=== PATIENT | male | born 1965 | race Caucasian/White ===

== ENCOUNTER 2017-02-03 00:07 | Inpatient (IN) | payer OTHER ==
[~2017-02-03] VITALS: Ht 210.8 cm; Wt 95.8 kg
[2017-02-03] VITALS (10 sets, daily range): BP systolic 128–161; BP diastolic 65–97; PULSE 72–110; RESP 16–18; TEMP 97.3–98.9; O2SAT 93–98
[2017-02-03] MEDS ORDERED: IOHEXOL 350 MG/ML 10 ML VIAL (for RAD DIAG) IVCONTRAST ONE (00:08)
[2017-02-03] MEDS ORDERED: ALBUAER3 INH (00:32)
--- NOTE | 2017-02-03 00:54 | PD ---
HPI Chief Complaint: Respiratory Symptoms Time Seen by Provider: 00:39 Travel History International Travel<30 days: No Contact w/Intl Traveler<30days: No Traveled to known affect area: No History of Present Illness HPI 51yo M with PMH of alcohol abuse presents to the ED with c/o productive cough for a few weeks. States he coughs so much, he sometimes vomits after coughing. Has intermittent mid sternal chest pain for a month. Last episode was a few hours ago. It is nonradiating. Denies any sob, n/v, abdominal pain, focal weakness or numbness. Pt drinks daily and last drank a few hours ago. Also has not seen a physician in a few years and has no PMH. Pt is a chronic cig smoker. Denies any history of ID, PE, DVT, recent surgery or travel. PFSH Past Medical History Diminished Hearing: No Tetanus Vaccination: < 5 Years Influenza Vaccination: No Past Surgical History Surgical History: No Previous Surgery Social History Alcohol Use: Yes (2-3 drinks a day) Tobacco Use: Yes (1 PPD) Substance Use: No Allergies-Medications (Allergen,Severity, Reaction): Coded Allergies: Penicillins (Verified Allergy, Unknown, 02/03/17) Unknown reaction per patient, "happened when I was a kid" Reported Meds & Prescriptions Reported Meds & Active Scripts Active Reported Proair Hfa 8.5 GM Inh (Albuterol Sulfate) 90 Mcg/Act Aer 1 Puff INH Q4H PRN 108 mcg/actuation Review of Systems Except as stated in HPI: all other systems reviewed are Neg Physical Exam Narrative GENERAL: 51yo M in mild distress. +AOB. SKIN: Focused skin assessment warm/dry. HEAD: Atraumatic. Normocephalic. EYES: Pupils equal and round. No scleral icterus. No injection or drainage. ENT: No nasal bleeding or discharge. Mucous membranes pink and moist. NECK: Trachea midline. No JVD. CARDIOVASCULAR: Tachycardic at 110bpm. No murmur appreciated. RESPIRATORY: No accessory muscle use. Clear to auscultation. Breath sounds equal bilaterally. GASTROINTESTINAL: Abdomen soft, non-tender, nondistended. MUSCULOSKELETAL: No obvious deformities. No clubbing. No cyanosis. No edema. NEUROLOGICAL: Awake and alert. No obvious cranial nerve deficits. Motor grossly within normal limits. Normal speech. PSYCHIATRIC: Appropriate mood and affect; insight and judgment normal. Data Data Last Documented VS Vital Signs Date Time Temp Pulse Resp B/P (MAP) Pulse Ox O2 Delivery O2 Flow Rate FiO2 02/03/17 03:00 106 18 144/82 (102) 96 Room Air 02/03/17 00:32 98.5 Orders Orders Basic Metabolic Panel (Bmp) (02/03/17 00:48) B-Type Natriuretic Peptide (02/03/17 00:48) Complete Blood Count With Diff (02/03/17 00:48) Magnesium (Mg) (02/03/17 00:48) Prothrombin Time / Inr (Pt) (02/03/17 00:48) Act Partial Throm Time (Ptt) (02/03/17 00:48) Troponin I (02/03/17 00:48) Chest, Single Ap (02/03/17 00:48) Ecg Monitoring (02/03/17 00:48) Bilateral Bp Monitoring (02/03/17 00:48) Iv Access Insert/Monitor (02/03/17 00:48) Oximetry (02/03/17 00:48) Oxygen Administration (02/03/17 00:48) Aspirin (Aspirin) (02/03/17 01:00) Sodium Chloride 0.9% Flush (Ns Flush) (02/03/17 01:00) Blood Culture (02/03/17 00:48) Lactic Acid Sepsis Protocol (02/03/17 00:48) Alcohol (Ethanol) (02/03/17 00:48) Sodium Chlor 0.9% 1000 Ml Inj (Ns 1000 M (02/03/17 01:00) Ct Pulmonary Angiogram (02/03/17 ) Sodium Chlor 0.9% 1000 Ml Inj (Ns 1000 M (02/03/17 02:00) Aztreonam Inj (Azactam Inj) (02/03/17 01:53) Levofloxacin (Levaquin) (02/03/17 01:53) Guaifenesin Liq (Robitussin Liq) (02/03/17 02:00) Iohexol 350 Inj (Omnipaque 350 Inj) (02/03/17 00:08) Admit Order (Ed Use Only) (02/03/17 03:24) Labs Laboratory Tests Test 02/03/17 00:30 02/03/17 02:50 White Blood Count 13.1 TH/MM3 Red Blood Count 4.55 MIL/MM3 Hemoglobin 15.5 GM/DL Hematocrit 46.7 % Mean Corpuscular Volume 102.5 FL Mean Corpuscular Hemoglobin 34.1 PG Mean Corpuscular Hemoglobin Concent 33.2 % Red Cell Distribution Width 13.7 % Platelet Count 384 TH/MM3 Mean Platelet Volume 8.6 FL Neutrophils (%) (Auto) 57.6 % Lymphocytes (%) (Auto) 30.5 % Monocytes (%) (Auto) 8.7 % Eosinophils (%) (Auto) 2.0 % Basophils (%) (Auto) 1.2 % Neutrophils # (Auto) 7.6 TH/MM3 Lymphocytes # (Auto) 4.0 TH/MM3 Monocytes # (Auto) 1.1 TH/MM3 Eosinophils # (Auto) 0.3 TH/MM3 Basophils # (Auto) 0.2 TH/MM3 CBC Comment DIFF FINAL Differential Comment Prothrombin Time 10.8 SEC Prothromb Time International Ratio 1.0 RATIO Activated Partial Thromboplast Time 25.2 SEC Blood Urea Nitrogen 6 MG/DL Creatinine 0.89 MG/DL Random Glucose 160 MG/DL Calcium Level 8.9 MG/DL Magnesium Level 1.7 MG/DL Sodium Level 136 MEQ/L Potassium Level 3.5 MEQ/L Chloride Level 99 MEQ/L Carbon Dioxide Level 24.4 MEQ/L Anion Gap 13 MEQ/L Estimat Glomerular Filtration Rate 90 ML/MIN Lactic Acid Level 3.2 mmol/L 2.3 mmol/L Troponin I LESS THAN 0.02 NG/ML B-Type Natriuretic Peptide 52 PG/ML Ethyl Alcohol Level 186 MG/DL [facility] Medical Decision Making Medical Screen Exam Complete: Yes Emergency Medical Condition: Yes Interpretation(s) EKG: Sinus tachycardia at 110bpm. Normal axis. No ST segment elevation or depression. Differential Diagnosis Pneumonia vs. bronchitis vs. ACS vs. PE vs. malignancy Narrative Course 51yo M with alcohol abuse and chronic cig smoker here with worsening cough and intermittent sharp chest pain. Does not really have sob. Pt initially tachycardic at 110bpm and is still tachycardic in the low 100s after 2 liter of NS IVF. Labs reviewed, leukocytosis at 13.1. Lactic acid is elevated at 3.2. Pt empirically given aztreonam and levoquin because pt is allergic to penicillin and presumed source is respiratory. Troponin negative. BNP normal. Blood alcohol 186. CXR negative. CT angio negative for PE. Numerous bilateral pulmonary nodules and mediastinal adenopathy characteristic of metastatic disease. Differential includes a primary lung carcinoma. Mediastinal adenopathy results in partial obstruction of the upper superior vena cava and brachiocephalic veins. Informed pt of this. Will admit pt for sepsis as well as metastatic disease work up. Pt given aspirin for atypical chest pain which is more likely pain from the malignancy. Critical Care Narrative Aggregate critical care time was 40 minutes. Time to perform other separately billable procedures was not included in the critical care time. My time did not include minutes spent treating any other patients simultaneously or on activities that did not directly contribute to the patient's treatment. The services I provided to this patient were to treat and/or prevent clinically significant deterioration that could result in: cardiovascular collapse or . I provided critical care services requiring my management, as noted below: Chart data review, documentation time, medication orders and management, vital sign assessments/reviewing monitor data, ordering and reviewing lab tests, ordering and interpreting/reviewing x-rays and diagnostic studies, care of the patient and discussion of the patient with the admitting physicians. Sepsis Criteria SIRS Criteria (2 or more): Heart rate over 90, WBC > 69418, < 4000 or > 10% bands Sepsis Criteria (SIRS+source): Infect source susp/known Severe Sepsis (+one): Lactate >2 Diagnosis Primary Impression: Sepsis Qualified Codes: A41.9 - Sepsis, unspecified organism Additional Impression: Pulmonary nodules/lesions, multiple Admitting Information Admitting Physician Requests: it Ally Champion DO Feb 03, 2017 00:54
[2017-02-03] MEDS ORDERED: ASPIRIN 325 MG TAB PO ONE (01:00)
[2017-02-03] MEDS ORDERED: SODIUM CHLOR 0.9% 1000 ML INJ 1,000 ML IV ONE ×2 (01:00→02:00)
[2017-02-03] MEDS ORDERED: SODIUM CHLORIDE 0.9% FLUSH 10 ML FLUSH IVF PRN (01:00)
[2017-02-03 01:18] LABS: AUTOMATED NEUTROPHIL # 7.6 TH/MM3 (1.8-7.7); BASOPHIL # 0.2 TH/MM3 (0-0.2); BASOPHIL % 1.2 % (0.0-2.0); EOSINOPHIL # 0.3 TH/MM3 (0-0.4); HEMATOCRIT 46.7 % (39.0-51.0); HEMO FLAGS DIFF FINAL; LYMPH % 30.5 % (9.0-44.0); MEAN CELL VOLUME 102.5 FL (80.0-100.0); MEAN CORPUSCULAR HEMOGLOBIN 34.1 PG (27.0-34.0); MEAN CORPUSCULAR HGB CONC 33.2 % (32.0-36.0); MONO % 8.7 % (0.0-8.0); NEUT % 57.6 % (16.0-70.0); PLATELET COUNT 384 TH/MM3 (150-450); RED BLOOD COUNT 4.55 MIL/MM3 (4.50-5.90); RED CELL DISTRIBUTION WIDTH 13.7 % (11.6-17.2); WHITE BLOOD COUNT 13.1 TH/MM3 (4.0-11.0)
--- NOTE | 2017-02-03 01:25 | RADRPT ---
EXAM DATE/TIME: 02/03/2017 01:17 [facility] COMPARISON: No previous studies available for comparison. INDICATIONS : Chest pain. MEDICAL HISTORY : None. SURGICAL HISTORY : None. ENCOUNTER: Initial ACUITY: 3 days PAIN SCORE: 5/10 LOCATION: Bilateral chest FINDINGS: A single view of the chest demonstrates the lungs to be symmetrically aerated without evidence of mas s, infiltrate or effusion. The cardiomediastinal contours are unremarkable. Osseous structures are intact. CONCLUSION: 1. No active disease. Cesar Johns MD on February 03, 2017 at 1:21 Board Certified Radiologist. This report was verified electronically.
[2017-02-03 01:30] LABS: APTT (PATIENT) 25.2 SEC (24.3-30.1); PROTHROMBIN TIME - PATIENT 10.8 SEC (9.8-11.6)
[2017-02-03 01:35] LABS: ANION GAP 13 MEQ/L (5-15); BICARBONATE 24.4 MEQ/L (21.0-32.0); BLOOD UREA NITROGEN 6 MG/DL (7-18); CHLORIDE 99 MEQ/L (98-107); GLOMERULAR FILTRATION RATE 90 ML/MIN (>89); MAGNESIUM 1.7 MG/DL (1.5-2.5); POTASSIUM 3.5 MEQ/L (3.5-5.1); SODIUM (NA) 136 MEQ/L (136-145)
[2017-02-03 01:36] LABS: ALCOHOL 186 MG/DL (0-5)
[2017-02-03] MEDS ORDERED: AZTREONAM INJ 2,000 MG in SODIUM CHLORIDE 0.9% INJ 100 ML IV STA (01:53)
[2017-02-03] MEDS ORDERED: LEVOFLOXACIN 750 MG TAB PO STA (01:53)
[2017-02-03] MEDS ORDERED: guaiFENesin SOLUTION 200 MG/10 ML CUP PO PRN (02:00)
--- NOTE | 2017-02-03 02:42 | RADRPT ---
EXAM DATE/TIME: 02/03/2017 02:24 [facility] COMPARISON: No previous studies available for comparison. INDICATIONS : Chest pain. IV CONTRAST: 70 cc Omnipaque 350 (iohexol) IV RADIATION DOSE: 23.25 CTDIvol (mGy) MEDICAL HISTORY : None SURGICAL HISTORY : None. ENCOUNTER: Initial ACUITY: 1 day PAIN SCALE: 5/10 LOCATION: Bilateral chest TECHNIQUE: Volumetric scanning of the chest was performed using a pulmonary embolism protocol MIP images were re constructed. Using automated exposure control and adjustment of the mA and/or kV according to patien t size, radiation dose was kept as low as reasonably achievable to obtain optimal diagnostic quality images. DICOM format image data is available electronically for review and comparison. Follow-up recommendations for detected pulmonary nodules are based at a minimum on nodule size and pa tient risk factors according to Fleischner Society Guidelines. FINDINGS: No filling defects identified in the pulmonary arteries to suggest pulmonary embolic disease. There are numerous bilateral pulmonary nodules. Largest measures about 1.7 cm left upper lobe and 1.5 cm right lower lobe. No associated pleural effusions. There is extensive mediastinal adenopathy present with conglomerate pastora mass centrally measuring up to 7.6 x 3.8 cm. A 3.5 cm anterior mediastinal mass is also present on the right partially occluding the left brachiocephalic vein and superior vena cava as well as the right brachiocephalic vein. CONCLUSION: 1. Negative for pulmonary embolus. 2. Numerous bilateral pulmonary nodules and mediastinal adenopathy characteristic of metastatic disea se. Primary unknown but differential diagnosis includes a primary lung carcinoma. 3. Mediastinal adenopathy results in partial obstruction of the upper superior vena cava and brachioc ephalic veins. Cesar Johns MD on February 03, 2017 at 2:32 Board Certified Radiologist. This report was verified electronically.
[2017-02-03 03:10] LABS: LACTIC ACID GHOST NOT REPORTABLE
[2017-02-03] MEDS ORDERED: SODIUM CHLORIDE 0.9% FLUSH 10 ML FLUSH IV FLUSH PRN ×2 (03:45→11:45)
[2017-02-03] MEDS ORDERED: NALOXONE HCL 0.4 MG/ML AMP IV PRN (03:45)
[2017-02-03] MEDS: SODIUM CHLORIDE 0.9% FLUSH 10 ML FLUSH IV FLUSH SCH ×2 (09:00→21:44)
[2017-02-03] MEDS: LEVOFLOXACIN 750 MG PREMIX INJ 150 ML IV SCH (09:16)
[2017-02-03] MEDS ORDERED: RESP: ALBUTEROL 2.5 MG/IPRATROPIUM 0.5 MG NEB (PRN) NEB (11:30)
[2017-02-03] MEDS ORDERED: methylPREDNISolone SOD SUCC 125 MG/2 ML VIAL IV PUSH ONE (11:30)
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
[2017-02-03] MEDS ORDERED: LORazepam 2 MG TAB PO PRN (11:45)
[2017-02-03] MEDS ORDERED: FLUMAZENIL 0.5 MG/5 ML VIAL IV PUSH PRN (11:45)
[2017-02-03] MEDS ORDERED: LORazepam 1 MG TAB PO PRN (11:45)
[2017-02-03] MEDS ORDERED: LORazepam 2 MG/ML VIAL IV PUSH PRN ×4 (11:45)
[2017-02-03] MEDS: ENOXAPARIN SODIUM 40 MG/0.4 ML SYRINGE SQ SCH (12:00)
[2017-02-03] MEDS: RESP: ALBUTEROL 2.5 MG/IPRATROPIUM 0.5 MG NEB (SCH) NEB ×2 (16:10→19:37)
[2017-02-03 16:23] LABS: CREATINE KINASE 62 U/L (39-308)
--- NOTE | 2017-02-03 17:35 | EKG ---
Date Performed: 02/03/2017 Time Performed: 00:33:01 PTAGE: 51 years EKG: SINUS TACHYCARDIA ABNORMAL RHYTHM ECG NO PREVIOUS TRACING DOCTOR: Jere Anand Interpretating Date/Time 02/03/2017 17:33:42
[2017-02-03] MEDS ORDERED: SODIUM CHLORIDE 0.9% FLUSH 10 ML FLUSH IV FLUSH SCH (21:00)
[2017-02-03 21:25] LABS: CREATINE KINASE 63 U/L (39-308)
[2017-02-04] VITALS: BP 128/63; PULSE 74; RESP 18; TEMP 97.6; O2SAT 95
[2017-02-04 00:07] VITALS: PULSE 84
[2017-02-04 04:00] VITALS: BP 142/79; PULSE 77; RESP 18; TEMP 97.5; O2SAT 95
--- NOTE | 2017-02-04 05:36 | MB ---
cc: CLARKE WRIGHT MD, JOHN DATE OF CONSULTATION 02/03/2017 REASON FOR CONSULTATION Lung nodules and cough. HISTORY OF PRESENT ILLNESS This is a 51-year-old white male who has a longstanding history of smoking, was complaining of increasing chest congestion, cough, wheezing, sputum production and pains along his lower chest with shortness of breath. The patient over the past few days got more symptoms of cough and wheezing and he came to the emergency room and had a CT chest done which showed evidence of multiple lung nodules bilaterally with mediastinal adenopathy. There was also partial obstruction of the SVT with the lymph nodes. He was placed on oxygen and admitted and has been started on inhaled bronchodilators and also was placed on Solu-Medrol IV and Levaquin intravenously, at 750 mg. The patient does not have any hemoptysis. He denies fevers or chills or night sweats and denies any nausea, vomiting or aspiration. PAST HISTORY The patient's past history has included - History of bronchitis but denies history of chronic lung disease. No diabetes or hypertension. PAST SURGICAL HISTORY No surgeries in the past. HABITS The patient smoked one-pack per day for over 30 years. Drinks alcohol regularly. 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 Not exposed to asbestos. ALLERGIES PENICILLIN. FAMILY HISTORY Essentially noncontributory. MED LIST ProAir inhaler 2 puffs p.r.n. SYSTEMS REVIEW The patient has had no weight loss. No headaches or blackouts. He has some postnasal drip, cough and wheezing. He has no abdominal pains but has some lower chest pain and reflux. He has no urinary symptoms. No leg or calf muscle pains. He has no joint pains of the extremities. The other systems review is negative. PHYSICAL EXAMINATION GENERAL: This averagely built middle-aged white male is alert. Face is flushed. VITAL SIGNS: Blood pressure 145/90, pulse is 106, respirations 24, temperature 98.2. HEENT: Head normocephalic. Pupils are reactive. Nasal mucosa injected. Throat is mildly injected. He has mild cerumen. NECK: Supple. No bruits or thyroid enlargement or lymphadenopathy. CHEST: Diminished breath sounds with occasional wheeze in the upper lung carson. HEART: The heart sounds are regular. S1 and S2 with no murmur. ABDOMEN: Soft, nontender. No organomegaly. Bowel sounds are active. EXTREMITIES: No lesions or edema. Normal reflexes with no calf tenderness. NEUROLOGICALLY: He does move all of his extremities well with no focal deficits. SKIN: No lesions observed. IMPRESSION 1. Multiple lung nodules with mediastinal adenopathy. Rule out malignancy. 2. Possible right basilar pneumonia and exacerbation of COPD. 3. Nicotine dependency. PLAN 1. The patient has been advised that a CT-guided needle biopsy of the lung nodule will be scheduled. 2. Bedside pulmonary function with bronchodilators will also be scheduled. 3. We will continue with IV antibiotic therapy including Levaquin 750 mg daily and nebulized DuoNeb solution added four times a day and Solu-Medrol 40 mg IV q.8 hours. 4. The patient was advised to quit cigarette smoking and a nicotine patch can be used to help him quit. 5. Also a repeat CBC and a coag profile to be done in the a.m. Thank you for this consultation. Reji Torres MD JAUSTEN/JEWELL /6:13 PM /5:17 AM
[2017-02-04 05:56] LABS: AUTOMATED NEUTROPHIL # 8.9 TH/MM3 (1.8-7.7); BASOPHIL % 0.3 % (0.0-2.0); HEMATOCRIT 43.4 % (39.0-51.0); HEMO FLAGS DIFF FINAL; LYMPH % 8.6 % (9.0-44.0); LYMPHOCYTE # 0.9 TH/MM3 (1.0-4.8); MEAN CELL VOLUME 102.3 FL (80.0-100.0); MEAN CORPUSCULAR HEMOGLOBIN 35.2 PG (27.0-34.0); MEAN CORPUSCULAR HGB CONC 34.5 % (32.0-36.0); MONO % 2.3 % (0.0-8.0); NEUT % 88.8 % (16.0-70.0); PLATELET COUNT 285 TH/MM3 (150-450); RED BLOOD COUNT 4.24 MIL/MM3 (4.50-5.90); RED CELL DISTRIBUTION WIDTH 13.7 % (11.6-17.2); WHITE BLOOD COUNT 10.1 TH/MM3 (4.0-11.0)
[2017-02-04 06:25] LABS: BICARBONATE 29.4 MEQ/L (21.0-32.0); POTASSIUM 4.3 MEQ/L (3.5-5.1)
[2017-02-04] MEDS: RESP: ALBUTEROL 2.5 MG/IPRATROPIUM 0.5 MG NEB (SCH) NEB ×3 (07:49→17:02)
[2017-02-04 08:05] VITALS: BP 151/78; PULSE 78; RESP 18; TEMP 97.3; O2SAT 95
[2017-02-04] MEDS: SODIUM CHLORIDE 0.9% FLUSH 10 ML FLUSH IV FLUSH SCH (09:00)
[2017-02-04] MEDS: methylPREDNISolone SOD SUCC 40 MG/1 ML VIAL IV PUSH SCH ×2 (09:03→12:41)
[2017-02-04] MEDS: LEVOFLOXACIN 750 MG PREMIX INJ 150 ML IV SCH (09:04)
[2017-02-04 12:05] VITALS: BP 127/72; PULSE 89; RESP 18; TEMP 97; O2SAT 96
[2017-02-04] MEDS: ENOXAPARIN SODIUM 40 MG/0.4 ML SYRINGE SQ SCH (12:40)
--- NOTE | 2017-02-04 13:03 | HHI.PR ---
Subjective Remarks Feels Better. Lung biopsy was cancelled due to Aspirin given last am. He has some wheezing. Off O2 Objective Vital Signs Date Time Temp Pulse Resp B/P (MAP) Pulse Ox O2 Delivery O2 Flow Rate FiO2 02/04/17 12:05 97.0 89 18 127/72 (90) 96 02/04/17 08:05 97.3 78 18 151/78 (102) 95 02/04/17 04:00 97.5 77 18 142/79 (100) 95 02/04/17 00:07 84 02/04/17 00:00 97.6 74 18 128/63 (84) 95 02/03/17 20:31 89 02/03/17 20:00 98.4 83 18 143/78 (99) 93 02/03/17 15:05 98.9 81 18 140/97 (111) 96 I/O 02/03/17 02/03/17 02/03/17 02/04/17 02/04/17 02/04/17 06:59 14:59 22:59 06:59 14:59 22:59 Intake Total 2100 ml 400 ml 480 ml Balance 2100 ml 400 ml 480 ml Intake Oral 400 ml 480 ml IV Total 2100 ml # Voids 3 4 # Bowel Movements 2 Result Diagram: 02/04/17 0542 02/04/17 0542 Objective Remarks GENERAL: This averagely built middle-aged white male is alert. Face is flushed. HEENT: Head normocephalic. Pupils are reactive. Nasal mucosa clear. Throat is clear. NECK: Supple. No bruits or thyroid enlargement or lymphadenopathy. CHEST: Diminished breath sounds with occasional wheeze in the upper lung carson. HEART: The heart sounds are regular. S1 and S2 with no murmur. ABDOMEN: Soft, nontender. No organomegaly. Bowel sounds are active. EXTREMITIES: No lesions or edema. Normal reflexes with no calf tenderness. NEUROLOGICALLY: He does move all of his extremities well with no focal deficits. SKIN: No lesions observed. Assessment and Plan Assessment and Plan IMPRESSION 1. Multiple lung nodules with mediastinal adenopathy. Rule out malignancy. 2. Possible right basilar pneumonia and exacerbation of COPD. 3. Nicotine dependency. Plan : 1. Cont antibiotic and switch to PO. 2. For CT guided biopsy of lung nodule in 4 days 3. Pro air inhaler 2 puffs qid prn. 4. Will F/U as OP in 1 week. Home today Jono Torres MD Feb 04, 2017 13:03
[2017-02-04 16:00] VITALS: BP 131/73; PULSE 92; RESP 17; TEMP 99.2; O2SAT 95
[2017-02-04] MEDS ORDERED: COUG100S PO (16:32)
[2017-02-04] MEDS ORDERED: LEVO750T3 PO (16:32)
[2017-02-04] MEDS ORDERED: MEDR4PAK PO (16:33)
--- NOTE | 2017-02-04 16:35 | HHI.PR ---
Subjective Remarks feeling slightly better Seen by etcher apprentice plan for outpatient CT-guided biopsy of the lung lymph node Patient wants to be discharged today Objective Vitals Vital Signs Date Time Temp Pulse Resp B/P (MAP) Pulse Ox O2 Delivery O2 Flow Rate FiO2 02/04/17 12:05 97.0 89 18 127/72 (90) 96 02/04/17 08:05 97.3 78 18 151/78 (102) 95 02/04/17 04:00 97.5 77 18 142/79 (100) 95 02/04/17 00:07 84 02/04/17 00:00 97.6 74 18 128/63 (84) 95 02/03/17 20:31 89 02/03/17 20:00 98.4 83 18 143/78 (99) 93 I/O 02/03/17 02/03/17 02/03/17 02/04/17 02/04/17 02/04/17 06:59 14:59 22:59 06:59 14:59 22:59 Intake Total 2100 ml 400 ml 480 ml Balance 2100 ml 400 ml 480 ml Intake Oral 400 ml 480 ml IV Total 2100 ml # Voids 3 4 # Bowel Movements 2 Result Diagram: 02/04/17 0542 02/04/17 0542 Objective Remarks - - GENERAL: This is a well-nourished, well-developed patient, in no apparent distress. SKIN: No rashes, warm and dry HEAD: Atraumatic. Normocephalic. Patient looks slightly plethoric his face EYES: Pupils equal round and reactive. Extraocular motions intact. No scleral icterus. ENT: Nose without bleeding, or drainage, Airway patent. NECK: Trachea midline. Supple CARDIOVASCULAR: Regular rate and rhythm without murmurs, gallops, or rubs. RESPIRATORY: Fair air entry with positive wheezes bilaterally GASTROINTESTINAL: Abdomen soft, non-tender, nondistended. Positive bowel sounds MUSCULOSKELETAL: Extremities without clubbing, cyanosis, or edema. Pedal pulses appreciated NEUROLOGICAL: Awake and alert. Moves all extremity. Normal speech.no focal neurological deficit A/P Assessment and Plan 51 years old male smoker came with Possible sepsis with lactic acidosis, tachycardia and increased WBC with underlying source pneumonia Chest tightness mostly due to mediastinal adenopathy and postobstructive pneumonia, rule out ACS Multiple bilateral pulmonary nodules with mediastinal adenopathy highly concerning malignancy Partial SVC obstruction due to mediastinal adenopathy Hyperchromic microcytic anemia mostly due to alcoholism Alcohol abuse Tobacco abuse DVT prophylaxis with Lovenox Plan: Appreciate hematology consult, discussed with the patient, recommended CT- guided biopsy as an outpatient and he will follow up in his office CT chest personally reviewed by me as well as chest x-ray 02, Solu-Medrol 1 dose 125 mg iv 1 now and then 40 every 8 to help with the wheezing and SVC obstruction DuoNeb every 6 hours and every 2 as needed Cardiac enzyme rule out ACS first set negative troponin Patient received Azactam and Levaquin dose in ED, we will continue on Levaquin iv Monitor vitals and WBC, repeat lactic acid in a.m. Sputum culture vitamin B-12 and folic acid reviewed Counseled about tobacco and alcohol abstinence, CIWA protocol Lovenox for DVT prophylaxis Discharge patient to home Condition on discharge: Improved Healthy heart Diet as tolerated Ad Sara activity Rx written: See med rec Follow-up with primary care physician, etcher apprentice in less than one week, CT- guided biopsy to be done as an outpatient Vicky Mayen MD Feb 04, 2017 16:35
--- NOTE | 2017-02-15 11:50 | RSPPFT ---
DATE OF PROCEDURE: 02/04/17 COMMENTS: Spirometry demonstrates an FEV1 of 2.5 at 65% of predicted, FVC of 4.3 at 88%, FEF 250-75 is 68%. Post-bronchodilator study demonstrated improvements in the FEV1. Flow volume loops suggest an obstructive pattern. IMPRESSION: 1. Mild to moderate obstructive disease. 2. Significant response to use of bronchodilator indicating reversibility.
== END 2017-02-04 18:17 | disposition home or self-care (01) | DRG 871 ==
LOC: NEPE 00:07 → NEDA 03:25 → INTOOBSV 03:25 → OBSVTOIN 05:30 → HOCA 06:53
PROVIDERS: ADMIT Hospitalist; ATTEND Hospitalist
DX: A41.9 Sepsis, unspecified organism (principal); J18.9 Pneumonia, unspecified organism; E87.2 Acidosis; J44.0 Chronic obstructive pulmonary disease with (acute) lower respiratory infection; D50.9 Iron deficiency anemia, unspecified; F10.20 Alcohol dependence, uncomplicated; I87.1 Compression of vein; J44.1 Chronic obstructive pulmonary disease with (acute) exacerbation; F17.210 Nicotine dependence, cigarettes, uncomplicated; G89.3 Neoplasm related pain (acute) (chronic); Y90.6 Blood alcohol level of 120-199 mg/100 ml; R91.8 Other nonspecific abnormal finding of lung field; R59.0 Localized enlarged lymph nodes
CPT/HCPCS: 71010; 71275; 80048; 80307; 82550; 82607; 82746; 83605; 83735; 83880; 84484; 85025; 85610; 85730; 87040; 93005; 94060; 94640; 94664; 96361; 96365; J1650; J1956; J2920; J2930; J7030; Q9967

== ENCOUNTER 2017-02-23 06:40 | Day surgery (SDC) | payer OTHER ==
[~2017-02-23] VITALS: Ht 180.3 cm; Wt 95.9 kg
[2017-02-23] VITALS (10 sets, daily range): BP systolic 127–168; BP diastolic 73–102; PULSE 75–96; RESP 18–20; TEMP 98–98.8; O2SAT 92–97
[~2017-02-23 06:40] MED LIST: ALBUAER3 INH; COUG100S PO; LEVO750T3 PO; MEDR4PAK PO
[2017-02-23] MEDS ORDERED: SODIUM CHLOR 0.9% 1000 ML INJ 1,000 ML IV SCH (07:30)
[2017-02-23] MEDS ORDERED: MIDAZOLAM HCL 5 MG/5 ML VIAL ONE (07:35)
[2017-02-23] MEDS ORDERED: LIDOCAINE HCL 1% 20 ML VIAL ONE (07:52)
[2017-02-23] MEDS ORDERED: MIDAZOLAM HCL 2 MG/2 ML VIAL ONE (08:22)
[2017-02-23] MEDS ORDERED: oxyCODONE/ACETAMINOPHEN 5 MG/325 MG TAB PO PRN (08:45)
--- NOTE | 2017-02-23 08:46 | PD.RAD ---
Post CT Procedure Prog Note Pre Procedure Diagnosis: (1) Lung nodule < 6cm on CT Post Procedure Diagnosis: (1) Lung nodule < 6cm on CT Procedure Date: Feb 23, 2017 Supervising Radiologist: Reji Wilkerson Estimated blood loss: minimal Anesthesia: Conscious Sedation Plan of Activity Patient to Unit: ROPU Patient Condition: Good See PACS Report for procedural detail/treatment Biopsy Imaging Guidance: CT Side: Right Biopsy Procedure: Lung Site: right lower lobe lung nodule. Specimen: Core Biopsy Plan to ROP[facility] then discharge if no complications. Reji Wilkerson MD Feb 23, 2017 08:46
--- NOTE | 2017-02-23 09:21 | RADRPT ---
EXAM DATE/TIME: 02/23/2017 08:13 [facility] COMPARISON: CT PULMONARY ANGIOGRAM, February 03, 2017, 2:24. INDICATIONS : Right lung mass. SEDATION TIME: 30 minutes BIOPSY SITE: Right MEDICATION(S): 1.) 6 mg midazolam (Versed) IV 2.) 225 mcg fentanyl (Sublimaze) IV DEVICE(S): 1.) 20 gauge Temno core biopsy needle MEDICAL HISTORY : None. SURGICAL HISTORY : None. ENCOUNTER: Initial ACUITY: 1 day PAIN SCORE: 0/10 LOCATION: Right chest A total of six core specimen(s) were obtained and sent to the laboratory for pathologic evaluation. PROCEDURE: 1. CT guided lung biopsy. 2. Conscious sedation with continuous EKG and oximetry monitoring. 3. EKG and oximetry remained stable throughout the procedure. Prior to the procedure informed consent was obtained. Any appropriate prior imaging studies were rev iewed. Using automated exposure control and adjustment of the mA and/or kV according to patient size, radiation dose was kept as low as reasonably achievable to obtain optimal diagnostic quality images. DICOM format image data is available electronically for review and comparison. The site was prepped in a sterile fashion. Full sterile technique was used, including cap, mask, madeleine rile gloves and gown and a large sterile sheet. Hand hygiene and 2% chlorhexidine and/or betadine/al cohol prep was utilized per protocol for cutaneous antisepsis. The skin and subcutaneous tissues wer e infiltrated with local anesthetic solution. The patient has multiple bilateral pulmonary nodules. The right lower lobe nodule was targeted for bi opsy. With CT guidance the right lower lobe nodule was localized. Biopsy was performed using the pres cribed needle as above. Adequate hemostasis was obtained with compression at the puncture site. Follow-up CT scan reveals no pneumothorax. There is mild perilesional hemorrhage. Conscious sedation was performed with the prescribed dosages and duration as above in the presence of an independent trained radiology nurse to assist in the monitoring of the patient. EKG and oximetry remained stable throughout the procedure. The patient tolerated the procedure well and there were no complications. The patient was sent to Radiology Outpatient Unit in stable condition. CONCLUSION: Uncomplicated CT guided biopsy of a right lower lobe nodule. Reji Wilkerson MD on February 23, 2017 at 9:06 Board Certified Radiologist. This report was verified electronically.
--- NOTE | 2017-02-23 10:09 | RADRPT ---
EXAM DATE/TIME: 02/23/2017 09:51 [facility] COMPARISON: CHEST SINGLE AP, February 03, 2017, 1:17. INDICATIONS : Post right lung biopsy. MEDICAL HISTORY : None. SURGICAL HISTORY : None. ENCOUNTER: Initial ACUITY: 1 day PAIN SCORE: 0/10 LOCATION: Bilateral chest FINDINGS: A single frontal expiratory view of the chest was performed. The lungs are symmetrically aerated and clear. No evidence of pneumothorax. Mediastinal structures are in the midline. The cardio-mediastinal contours and bronchopulmonary markings are unremarkable for an expiratory exam . Osseous structures are intact. CONCLUSION: 1. No acute cardiopulmonary findings. Yoni Muro MD on February 23, 2017 at 10:07 Board Certified Radiologist. This report was verified electronically.
--- NOTE | 2017-02-23 11:51 | RADRPT ---
EXAM DATE/TIME: 02/23/2017 11:30 [facility] COMPARISON: CHEST EXPIRATION ONLY, February 23, 2017, 9:51. INDICATIONS : Evaluate for pneumothorax MEDICAL HISTORY : None. SURGICAL HISTORY : None. ENCOUNTER: Initial ACUITY: 1 day PAIN SCORE: 0/10 LOCATION: Bilateral chest FINDINGS: A single frontal expiratory view of the chest was performed. The lungs are symmetrically aerated and clear except for some minimal left basilar atelectasis. No evidence of pneumothorax. Mediastinal s tructures are in the midline. The cardio-mediastinal contours and bronchopulmonary markings are unremarkable for an expiratory exam . Osseous structures are intact with some degenerative spurring of the dorsal spine. CONCLUSION: 1. No pneumothorax. 2. Minimal basilar atelectatic changes on the left Eric Hathaway MD on February 23, 2017 at 11:48 Board Certified Radiologist. This report was verified electronically.
== END 2017-02-23 13:00 | disposition home or self-care (01) ==
LOC: HRAD 06:40 → HRIP 06:44 → HRAD 13:00
DX: C34.91 Malignant neoplasm of unspecified part of right bronchus or lung (principal)
CPT/HCPCS: 32405; 71010; 77012; 87015; 87070; 87102; 87116; 87176; 87205; 87206; 88305; 88341; 88342; J2250; J3010

== ENCOUNTER 2017-02-26 14:41 | Inpatient (IN) | payer OTHER ==
[~2017-02-26] VITALS: Ht 180.3 cm; Wt 96.0 kg
[~2017-02-26 14:41] MED LIST changes: -LEVO750T3 PO
[2017-02-26 14:44] VITALS: BP 169/93; PULSE 98; RESP 20; TEMP 97.9; O2SAT 96
--- NOTE | 2017-02-26 15:12 | PD ---
Physical Exam Date Seen by Provider: Feb 26, 2017 Time Seen by Provider: 15:10 Narrative 51-year-old male presents to emergency department status post lung biopsy on February 23. Patient has had increasing shortness of breath, chest pain, and cough since last night. Patient denies hemoptysis. Patient denies fever. Patient denies nausea or vomiting. Patient describes the pain as a 6/ 10. Vital signs reviewed. Patient awaiting bed placement. Data Data Last Documented VS Vital Signs Date Time Temp Pulse Resp B/P (MAP) Pulse Ox O2 Delivery O2 Flow Rate FiO2 02/26/17 14:44 97.9 98 20 169/93 (118) 96 MDM Medical Record Reviewed: Yes Supervised Visit with ADALID: Yes Condition: Stable Rajat Lai Feb 26, 2017 15:12
[2017-02-26] MEDS ORDERED: UMEC1AER INH (15:30)
[2017-02-26] MEDS ORDERED: PRED10 PO (15:30)
[2017-02-26] MEDS ORDERED: SODIUM CHLORIDE 0.9% FLUSH 10 ML FLUSH IVF PRN (15:45)
--- NOTE | 2017-02-26 15:48 | PD ---
HPI Chief Complaint: Respiratory Symptoms Time Seen by Provider: 15:15 Travel History International Travel<30 days: No Contact w/Intl Traveler<30days: No Traveled to known affect area: No History of Present Illness HPI Patient is 51-year-old male who presents to emergency room with c/o of sob, chest pain and cough since his lung biopsy on February 23. Patient reports that Dr. Dalton sent him for a lung biospy for diagnosis of lung nodule on his right lung on February 23. Reports that since then, been feeling dyspneic, reports that he has been feeling short of breath with difficulty taking deep breaths also been having chest pain. Reports concerns as he just had his lung biopsy and wanted to make sure everything was okay. Reports that he has no medical problems at this time, he is taking steroids, as well as an inhaler. Denies fever/chills. Reports nonproductive cough PFSH Past Medical History Diminished Hearing: No Medical other: Yes (biopy to r lung ) Respiratory: Yes Immunizations Current: No Past Surgical History Surgical History: No Previous Surgery Social History Alcohol Use: Yes (2-3 drinks a day) Tobacco Use: Yes (4-5 a day ) Substance Use: No Allergies-Medications (Allergen,Severity, Reaction): Coded Allergies: Penicillins (Verified Allergy, Unknown, 02/26/17) Unknown reaction per patient, "happened when I was a kid" Reported Meds & Prescriptions Reported Meds & Active Scripts Active Reported Anoro Ellipta Inh (Umeclidinium/Vilanterol) 62.5-25 Mcg/Act Aero 1 Puff INH DAILY Prednisone 10 Mg Tab 10 Mg PO DAILY Proair Hfa 8.5 GM Inh (Albuterol Sulfate) 90 Mcg/Act Aer 1 Puff INH Q4H PRN 108 mcg/actuation Review of Systems General / Constitutional: No: Fever Eyes: No: Visual changes HENT: No: Headaches Cardiovascular: Positive: Chest Pain or Discomfort, Tachycardia Respiratory: Positive: Cough, Shortness of Breath Gastrointestinal: No: Abdominal Pain Genitourinary: No: Dysuria Musculoskeletal: No: Pain Skin: No Rash Neurologic: No: Weakness Psychiatric: No: Depression Endocrine: No: Polydipsia Hematologic/Lymphatic: No: Easy Bruising Physical Exam Narrative GENERAL: Mild distress SKIN: Focused skin assessment warm/dry. HEAD: Atraumatic. Normocephalic. EYES: Pupils equal and round. No scleral icterus. No injection or drainage. ENT: No nasal bleeding or discharge. Mucous membranes pink and moist. NECK: Trachea midline. No JVD. CARDIOVASCULAR: Tachycardic. No murmur appreciated. RESPIRATORY: No accessory muscle use. Clear to auscultation. Breath sounds equal bilaterally. Right posterior lung insertion site: C/D/I with no signs of infection GASTROINTESTINAL: Abdomen soft, non-tender, nondistended. Hepatic and splenic margins not palpable. MUSCULOSKELETAL: No obvious deformities. No clubbing. No cyanosis. No edema. NEUROLOGICAL: Awake and alert. No obvious cranial nerve deficits. Motor grossly within normal limits. Normal speech. PSYCHIATRIC: Appropriate mood and affect; insight and judgment normal. Data Data Last Documented VS Vital Signs Date Time Temp Pulse Resp B/P (MAP) Pulse Ox O2 Delivery O2 Flow Rate FiO2 02/26/17 17:04 83 14 136/68 (90) 95 2.00 02/26/17 16:16 Nasal Cannula 02/26/17 14:44 97.9 Orders Orders Complete Blood Count With Diff (02/26/17 15:37) Comprehensive Metabolic Panel (02/26/17 15:37) B-Type Natriuretic Peptide (02/26/17 15:37) Act Partial Throm Time (Ptt) (02/26/17 15:37) Prothrombin Time / Inr (Pt) (02/26/17 15:37) Magnesium (Mg) (02/26/17 15:37) Ckmb (Isoenzyme) Profile (02/26/17 15:37) Troponin I (02/26/17 15:37) Arterial Blood Gas (Abg) (02/26/17 15:37) Urinalysis - C+S If Indicated (02/26/17 15:37) Iv Access Insert/Monitor (02/26/17 15:37) Electrocardiogram (02/26/17 15:37) Ecg Monitoring (02/26/17 15:37) Oximetry (02/26/17 15:37) Chest, Single Ap (02/26/17 15:37) Sodium Chloride 0.9% Flush (Ns Flush) (02/26/17 15:45) Midazolam Inj (Versed Inj) (02/26/17 16:15) Hydromorphone Pf Inj (Dilaudid Pf Inj) (02/26/17 16:15) Lidocaine 1% Inj (50 Ml) (Xylocaine 1% I (02/26/17 16:30) Chest, Single Ap (02/26/17 17:03) Labs Laboratory Tests Test 02/26/17 15:30 02/26/17 15:45 White Blood Count 13.4 TH/MM3 Red Blood Count 4.33 MIL/MM3 Hemoglobin 14.8 GM/DL Hematocrit 43.9 % Mean Corpuscular Volume 101.5 FL Mean Corpuscular Hemoglobin 34.2 PG Mean Corpuscular Hemoglobin Concent 33.7 % Red Cell Distribution Width 13.2 % Platelet Count 374 TH/MM3 Mean Platelet Volume 8.8 FL Neutrophils (%) (Auto) 72.9 % Lymphocytes (%) (Auto) 16.7 % Monocytes (%) (Auto) 7.8 % Eosinophils (%) (Auto) 1.7 % Basophils (%) (Auto) 0.9 % Neutrophils # (Auto) 9.8 TH/MM3 Lymphocytes # (Auto) 2.2 TH/MM3 Monocytes # (Auto) 1.0 TH/MM3 Eosinophils # (Auto) 0.2 TH/MM3 Basophils # (Auto) 0.1 TH/MM3 CBC Comment DIFF FINAL Differential Comment Prothrombin Time 10.7 SEC Prothromb Time International Ratio 1.0 RATIO Activated Partial Thromboplast Time 25.9 SEC Blood Urea Nitrogen 8 MG/DL Creatinine 0.73 MG/DL Random Glucose 91 MG/DL Total Protein 7.5 GM/DL Albumin 3.5 GM/DL Calcium Level 9.2 MG/DL Magnesium Level 2.0 MG/DL Alkaline Phosphatase 104 U/L Aspartate Amino Transf (AST/SGOT) 42 U/L Alanine Aminotransferase (ALT/SGPT) 50 U/L Total Bilirubin 1.3 MG/DL Sodium Level 136 MEQ/L Potassium Level 3.8 MEQ/L Chloride Level 100 MEQ/L Carbon Dioxide Level 26.9 MEQ/L Anion Gap 9 MEQ/L Estimat Glomerular Filtration Rate 113 ML/MIN Total Creatine Kinase 39 U/L Troponin I LESS THAN 0.02 NG/ML B-Type Natriuretic Peptide 21 PG/ML Urine Color YELLOW Urine Turbidity CLEAR Urine pH 7.0 Urine Specific [place] 1.014 Urine Protein TRACE mg/dL Urine Glucose (UA) NEG mg/dL Urine Ketones NEG mg/dL Urine Occult Blood NEG Urine Nitrite NEG Urine Bilirubin NEG Urine Urobilinogen LESS THAN 2.0 MG/DL Urine Leukocyte Esterase NEG Urine WBC LESS THAN 1 /hpf Urine Squamous Epithelial Cells <1 /hpf Microscopic Urinalysis Comment CULT NOT INDICATED MDM Medical Decision Making Medical Screen Exam Complete: Yes Emergency Medical Condition: Yes Medical Record Reviewed: Yes Interpretation(s) EKG at 1611: NSR at 95bpm, qt/qtc: 343/395, no acute st or t wave changes, non acute ekg Vital Signs Date Time Temp Pulse Resp B/P (MAP) Pulse Ox O2 Delivery O2 Flow Rate FiO2 02/26/17 15:20 96 Nasal Cannula 2.00 02/26/17 15:19 92 17 95 Nasal Cannula 2.00 02/26/17 15:12 92 Room Air 02/26/17 14:44 97.9 98 20 169/93 (118) 96 Differential Diagnosis Differential includes pneumothorax, PE, pneumonia, ACS, arrhythmia, electrolyte abnormality Narrative Course Patient is a 51-year-old male who presents to the ER with c/o of shortness of breath/chest pain and cough after he had a lung biopsy on February 23. Patient was placed on a cardiac exercise physiologist. EKG ordered. Lab work as well as xray of chest ordered. Plan to monitor patient. Vital Signs Date Time Temp Pulse Resp B/P (MAP) Pulse Ox O2 Delivery O2 Flow Rate FiO2 02/26/17 17:04 83 14 136/68 (90) 95 2.00 02/26/17 16:16 96 Nasal Cannula 2.00 02/26/17 15:41 (118) Nasal Cannula 2.00 02/26/17 15:20 96 Nasal Cannula 2.00 02/26/17 15:19 92 17 95 Nasal Cannula 2.00 02/26/17 15:12 92 Room Air 02/26/17 14:44 97.9 98 20 169/93 (118) 96 Laboratory Tests Test 02/26/17 15:30 02/26/17 15:45 White Blood Count 13.4 TH/MM3 (4.0-11.0) Red Blood Count 4.33 MIL/MM3 (4.50-5.90) Hemoglobin 14.8 GM/DL (13.0-17.0) Hematocrit 43.9 % (39.0-51.0) Mean Corpuscular Volume 101.5 FL (80.0-100.0) Mean Corpuscular Hemoglobin 34.2 PG (27.0-34.0) Mean Corpuscular Hemoglobin Concent 33.7 % (32.0-36.0) Red Cell Distribution Width 13.2 % (11.6-17.2) Platelet Count 374 TH/MM3 (150-450) Mean Platelet Volume 8.8 FL (7.0-11.0) Neutrophils (%) (Auto) 72.9 % (16.0-70.0) Lymphocytes (%) (Auto) 16.7 % (9.0-44.0) Monocytes (%) (Auto) 7.8 % (0.0-8.0) Eosinophils (%) (Auto) 1.7 % (0.0-4.0) Basophils (%) (Auto) 0.9 % (0.0-2.0) Neutrophils # (Auto) 9.8 TH/MM3 (1.8-7.7) Lymphocytes # (Auto) 2.2 TH/MM3 (1.0-4.8) Monocytes # (Auto) 1.0 TH/MM3 (0-0.9) Eosinophils # (Auto) 0.2 TH/MM3 (0-0.4) Basophils # (Auto) 0.1 TH/MM3 (0-0.2) CBC Comment DIFF FINAL Differential Comment Prothrombin Time 10.7 SEC (9.8-11.6) Prothromb Time International Ratio 1.0 RATIO Activated Partial Thromboplast Time 25.9 SEC (24.3-30.1) Blood Urea Nitrogen 8 MG/DL (7-18) Creatinine 0.73 MG/DL (0.60-1.30) Random Glucose 91 MG/DL (74-106) Total Protein 7.5 GM/DL (6.4-8.2) Albumin 3.5 GM/DL (3.4-5.0) Calcium Level 9.2 MG/DL (8.5-10.1) Magnesium Level 2.0 MG/DL (1.5-2.5) Alkaline Phosphatase 104 U/L (45-117) Aspartate Amino Transf (AST/SGOT) 42 U/L (15-37) Alanine Aminotransferase (ALT/SGPT) 50 U/L (12-78) Total Bilirubin 1.3 MG/DL (0.2-1.0) Sodium Level 136 MEQ/L (136-145) Potassium Level 3.8 MEQ/L (3.5-5.1) Chloride Level 100 MEQ/L (98-107) Carbon Dioxide Level 26.9 MEQ/L (21.0-32.0) Anion Gap 9 MEQ/L (5-15) Estimat Glomerular Filtration Rate 113 ML/MIN (>89) Total Creatine Kinase 39 U/L (39-308) Troponin I LESS THAN 0.02 NG/ML B-Type Natriuretic Peptide 21 PG/ML (0-100) Urine Color YELLOW (YELLW/STRAW) Urine Turbidity CLEAR (CLEAR) Urine pH 7.0 (5.0-8.5) Urine Specific [place] 1.014 (1.002-1.035) Urine Protein TRACE mg/dL (NEG-TRACE) Urine Glucose (UA) NEG mg/dL (NEG) Urine Ketones NEG mg/dL (NEG) Urine Occult Blood NEG (NEG) Urine Nitrite NEG (NEG) Urine Bilirubin NEG (NEG) Urine Urobilinogen LESS THAN 2.0 MG/DL (LESS Urine Leukocyte Esterase NEG (NEG) Urine WBC LESS THAN 1 /hpf (0-5) Urine Squamous Epithelial Cells <1 /hpf (0-5) Microscopic Urinalysis Comment CULT NOT INDICATED Last Impressions Chest X-Ray 02/26/17 1537 Signed Impressions: Service Date/Time: Tuesday, February 26, 2017 15:41 - CONCLUSION: 1. Moderate to large right pneumothorax without current evidence of tension. 2. 1.8 cm pulmonary nodule in the left upper lobe. The patient has known pulmonary nodules. These findings were called to Dr. Stern in the emergency room at 1603 hrs. Moy Maier MD Patient gave verbal and written consent for chest tube placed Chest tube placed without difficultly Case reviewed with Dr. Batista who accepts pt to his service Procedures Procedure Narrative CHEST TUBE THORACOSTOMY: The right chest was prepped with Betadine and sterilely draped. The area of the fifth intercostal interspace was infiltrated with 1% lidocaine plain. A 1 centimeter incision was made with a scalpel at the fifth intercostal space. Blunt dissection to the fourth intercostal interspace performed and the pleura was punctured with immediate grijalva of air. Finger was inserted in the space and thoracostomy tube was placed, directed posteriorly and superiorly. Tube draining well. The thoracostomy tube 28Fr was secured with suture. Sterile seal dressing placed. Patient tolerated procedure well. Diagnosis Primary Impression: Pneumothorax after biopsy Admitting Information Admitting Physician Requests: Admit Condition: Stable Bere Stern DO Feb 26, 2017 15:48
--- NOTE | 2017-02-26 16:07 | RADRPT ---
EXAM DATE/TIME: 02/26/2017 15:41 [facility] COMPARISON: CT PULMONARY ANGIOGRAM, February 03, 2017, 2:24. CHEST EXPIRATION ONLY, February 23, 2017, 9:51. [facility]VIS ST SINGLE AP, February 03, 2017, 1:17. INDICATIONS : Shortness of breath and cough status post right lung biopsy on 02/23/17. MEDICAL HISTORY : None. SURGICAL HISTORY : Right lung biopsy. ENCOUNTER: Initial ACUITY: 1 day PAIN SCORE: 0/10 LOCATION: chest FINDINGS: A single AP semierect portable view of the chest was obtained and demonstrates a moderate to large ri ght pneumothorax which extends from the lung apex to the base and surrounds the periphery of the lung which is collapsed centrally. There is no definite mediastinal shift or mass effect at this time. Th ere is a pulmonary nodule projected over the left upper lobe measuring approximately 1.8 cm. The hear t size is within normal limits. The bony thorax is intact. CONCLUSION: 1. Moderate to large right pneumothorax without current evidence of tension. 2. 1.8 cm pulmonary nodule in the left upper lobe. The patient has known pulmonary nodules. These findings were called to Dr. Stern in the emergency room at 1603 hrs. Moy Maier MD on February 26, 2017 at 16:01 Board Certified Radiologist. This report was verified electronically.
[2017-02-26] MEDS ORDERED: MIDAZOLAM HCL 2 MG/2 ML VIAL IV PUSH ONE (16:15)
[2017-02-26] MEDS ORDERED: HYDROmorphone HCL PF 1 MG/ML VIAL IV PUSH ONE (16:15)
[2017-02-26 16:16] VITALS: O2SAT 96
[2017-02-26] MEDS ORDERED: LIDOCAINE HCL 1% 50 ML VIAL INFIL ONE (16:30)
[2017-02-26 16:31] LABS: AUTOMATED NEUTROPHIL # 9.8 TH/MM3 (1.8-7.7); BASOPHIL # 0.1 TH/MM3 (0-0.2); BASOPHIL % 0.9 % (0.0-2.0); EOSINOPHIL # 0.2 TH/MM3 (0-0.4); EOSINOPHIL % 1.7 % (0.0-4.0); HEMATOCRIT 43.9 % (39.0-51.0); HEMO FLAGS DIFF FINAL; LYMPH % 16.7 % (9.0-44.0); LYMPHOCYTE # 2.2 TH/MM3 (1.0-4.8); MEAN CELL VOLUME 101.5 FL (80.0-100.0); MEAN CORPUSCULAR HEMOGLOBIN 34.2 PG (27.0-34.0); MEAN CORPUSCULAR HGB CONC 33.7 % (32.0-36.0); MONO % 7.8 % (0.0-8.0); NEUT % 72.9 % (16.0-70.0); PLATELET COUNT 374 TH/MM3 (150-450); RED BLOOD COUNT 4.33 MIL/MM3 (4.50-5.90); RED CELL DISTRIBUTION WIDTH 13.2 % (11.6-17.2); WHITE BLOOD COUNT 13.4 TH/MM3 (4.0-11.0)
[2017-02-26 16:34] LABS: BLOOD, URINE NEG (NEG); GLUCOSE,URINE NEG (NEG); KETONE, URINE NEG (NEG); NITRITE,URINE NEG (NEG); SQUAMOUS EPITHELIAL CELL URINE <1 /hpf (0-5); URINE COLOR YELLOW (YELLW/STRAW)
[2017-02-26 16:39] LABS: COMMENT (UR) CULT NOT INDICATED; CULTURE IF INDICATED CULT NOT INDICATED
[2017-02-26 16:40] LABS: APTT (PATIENT) 25.9 SEC (24.3-30.1); PROTHROMBIN TIME - PATIENT 10.7 SEC (9.8-11.6)
[2017-02-26 16:53] LABS: ANION GAP 9 MEQ/L (5-15); AST (GOT) 42 U/L (15-37); BICARBONATE 26.9 MEQ/L (21.0-32.0); BLOOD UREA NITROGEN 8 MG/DL (7-18); CHLORIDE 100 MEQ/L (98-107); GLOMERULAR FILTRATION RATE 113 ML/MIN (>89); POTASSIUM 3.8 MEQ/L (3.5-5.1); SODIUM (NA) 136 MEQ/L (136-145)
[2017-02-26 16:58] LABS: ALKALINE PHOSPHATASE 104 U/L (45-117); ALT (GPT) 50 U/L (12-78); TOTAL BILIRUBIN ADULT 1.3 MG/DL (0.2-1.0)
[2017-02-26 17:04] VITALS: BP 136/68; PULSE 83; RESP 14; O2SAT 95
[2017-02-26 17:07] LABS: CREATINE KINASE 39 U/L (39-308)
--- NOTE | 2017-02-26 17:31 | RADRPT ---
EXAM DATE/TIME: 02/26/2017 17:06 [facility] COMPARISON: CHEST SINGLE AP, February 26, 2017, 15:41. INDICATIONS : Chest tube placement. MEDICAL HISTORY : None. SURGICAL HISTORY : None. ENCOUNTER: Initial ACUITY: 1 day PAIN SCORE: 3/10 LOCATION: Right chest FINDINGS: A single AP portable semierect view of the chest was obtained and demonstrates interval placement of a right-sided chest tube with the tip projected along the lateral right lung apex. The moderate to la rge pneumothorax has improved with no definite residual. There is streaky opacity at the right lung b ase. A left pulmonary nodule is not well visualized. The heart size is within normal limits there is no mediastinal shift or effusion. CONCLUSION: 1. Interval placement of right-sided chest tube with no residual right pneumothorax. 2. Patchy opacity right lung base most consistent with atelectasis. 3. The previously noted left pulmonary nodule is not well-visualized. Moy Maier MD on February 26, 2017 at 17:28 Board Certified Radiologist. This report was verified electronically.
--- NOTE | 2017-02-26 17:36 | HHI.HP ---
HPI Service [facility] Primary Care Physician Unknown Admission Diagnosis Diagnoses: Chief Complaint: Chest pain Travel History International Travel<30 Days: No Contact w/Intl Traveler <30 Da: No Traveled to Known Affected Are: No History of Present Illness Written by Luis Adhikari, acting as scribe for Dr. Batista on 02/26/17 at 17:36. 51-year-old male with past medical history of lung nodules who presented for right-sided chest and back pain. The patient had a lung biopsy on Tuesday of this week secondary to recent lung nodules that were found. He states that since that time he's been having chest pain and upper back pain, worse on the right side. He's been having a nonproductive cough, denies any hemoptysis. He' s been having progressively worsening shortness of breath. He was found to have a right pneumothorax in the ED and a chest tube was placed. Currently he complains of discomfort from the chest tube. His internal audit consultant is Dr. Torres. He denies any nausea, vomiting, diarrhea, constipation, fever, chills, vision changes, numbness, tingling. Review of Systems Except as stated in HPI: all other systems reviewed are Neg Past Family Social History Past Medical History Pulmonary nodules Past Surgical History Lung biopsy Reported Medications Reported Meds & Active Scripts Active Reported Anoro Ellipta Inh (Umeclidinium/Vilanterol) 62.5-25 Mcg/Act Aero 1 Puff INH DAILY Prednisone 10 Mg Tab 10 Mg PO DAILY Proair Hfa 8.5 GM Inh (Albuterol Sulfate) 90 Mcg/Act Aer 1 Puff INH Q4H PRN 108 mcg/actuation Allergies: Coded Allergies: Penicillins (Verified Allergy, Unknown, 02/26/17) Unknown reaction per patient, "happened when I was a kid" Active Ordered Medications Current Medications Medications (Trade) Dose Ordered Sig/Nate Route Start Time Stop Time Status Last Admin (NS Flush) 2 ml UNSCH PRN IVF 02/26/17 15:45 Family History Adopted, unknown family history Social History Has a couple drinks nightly, denies any problems with withdrawals Has smoked 1 pack per day for 30 years, trying to cut back Denies any drug use Physical Exam Vital Signs Vital Signs Date Time Temp Pulse Resp B/P (MAP) Pulse Ox O2 Delivery O2 Flow Rate FiO2 02/26/17 17:04 83 14 136/68 (90) 95 2.00 02/26/17 16:16 96 Nasal Cannula 2.00 02/26/17 15:41 (118) Nasal Cannula 2.00 02/26/17 15:20 96 Nasal Cannula 2.00 02/26/17 15:19 92 17 95 Nasal Cannula 2.00 02/26/17 15:12 92 Room Air 02/26/17 14:44 97.9 98 20 169/93 (118) 96 Physical Exam GENERAL: Well-developed well-nourished. In no acute distress. SKIN: Warm and dry. Chest tube in place with occlusive dressing in the right axilla. HEENT: Normocephalic. Pupils equal and round. Mucous membranes pink and moist. CARDIOVASCULAR: Regular rate and rhythm. No murmur appreciated. RESPIRATORY: No accessory muscle use. Clear to auscultation. Breath sounds equal bilaterally. GASTROINTESTINAL: Abdomen soft, non-tender, nondistended. Bowel sounds x4. MUSCULOSKELETAL: No obvious deformities. Digital clubbing noted. No edema. NEUROLOGICAL: Awake and alert. No focal neurological deficits. Moves upper and lower extremities spontaneously. Normal speech. PSYCHIATRIC: Appropriate mood and affect; insight and judgment normal. Laboratory Laboratory Tests Test 02/26/17 15:30 02/26/17 15:45 White Blood Count 13.4 Red Blood Count 4.33 Hemoglobin 14.8 Hematocrit 43.9 Mean Corpuscular Volume 101.5 Mean Corpuscular Hemoglobin 34.2 Mean Corpuscular Hemoglobin Concent 33.7 Red Cell Distribution Width 13.2 Platelet Count 374 Mean Platelet Volume 8.8 Neutrophils (%) (Auto) 72.9 Lymphocytes (%) (Auto) 16.7 Monocytes (%) (Auto) 7.8 Eosinophils (%) (Auto) 1.7 Basophils (%) (Auto) 0.9 Neutrophils # (Auto) 9.8 Lymphocytes # (Auto) 2.2 Monocytes # (Auto) 1.0 Eosinophils # (Auto) 0.2 Basophils # (Auto) 0.1 CBC Comment DIFF FINAL Differential Comment Prothrombin Time 10.7 Prothromb Time International Ratio 1.0 Activated Partial Thromboplast Time 25.9 Blood Urea Nitrogen 8 Creatinine 0.73 Random Glucose 91 Total Protein 7.5 Albumin 3.5 Calcium Level 9.2 Magnesium Level 2.0 Alkaline Phosphatase 104 Aspartate Amino Transf (AST/SGOT) 42 Alanine Aminotransferase (ALT/SGPT) 50 Total Bilirubin 1.3 Sodium Level 136 Potassium Level 3.8 Chloride Level 100 Carbon Dioxide Level 26.9 Anion Gap 9 Estimat Glomerular Filtration Rate 113 Total Creatine Kinase 39 Troponin I LESS THAN 0.02 B-Type Natriuretic Peptide 21 Urine Color YELLOW Urine Turbidity CLEAR Urine pH 7.0 Urine Specific [place] 1.014 Urine Protein TRACE Urine Glucose (UA) NEG Urine Ketones NEG Urine Occult Blood NEG Urine Nitrite NEG Urine Bilirubin NEG Urine Urobilinogen LESS THAN 2.0 Urine Leukocyte Esterase NEG Urine WBC LESS THAN 1 Urine Squamous Epithelial Cells <1 Microscopic Urinalysis Comment CULT NOT INDICATED Result Diagram: 02/26/17 1530 02/26/17 1530 Imaging Last Impressions Chest X-Ray 02/26/17 1703 Signed Impressions: Service Date/Time: Tuesday, February 26, 2017 17:06 - CONCLUSION: 1. Interval placement of right-sided chest tube with no residual right pneumothorax. 2. Patchy opacity right lung base most consistent with atelectasis. 3. The previously noted left pulmonary nodule is not well-visualized. MD Leroy Lojai VTE Risk Assessment Caprini VTE Risk Assessment: Mod/High Risk (score >= 2) Caprini Risk Assessment Model Point Value = 1 Point Value = 2 Point Value = 3 Point Value = 5 Age 41-60 Minor surgery BMI > 25 kg/m2 Swollen legs Varicose veins or History of unexplained or recurrent spontaneous Oral contraceptives or hormone replacement Sepsis (< 1 month) Serious lung disease, including pneumonia (< 1 month) Abnormal pulmonary function Acute myocardial infarction Congestive heart failure (< 1 month) History of inflammatory bowel disease Medical patient at bed rest Age 61-74 Arthroscopic surgery Major open surgery (> 45 min) Laparoscopic surgery (> 45 min) Malignancy Confined to bed (> 72 hours) Immobilizing plaster cast Central venous access Age >= 75 History of VTE Family history of VTE Factor V Leiden Prothrombin [id number] Lupus anticoagulant Anticardiolipin antibodies Elevated serum homocysteine Heparin-induced thrombocytopenia Other congenital or acquired thrombophilia Stroke (< 1 month) Elective arthroplasty Hip, pelvis, or leg fracture Acute spinal cord injury (< 1 month) Prophylaxis Regimen Total Risk Factor Score Risk Level Prophylaxis Regimen 0-1 Low Early ambulation 2 Moderate Order ONE of the following: *Sequential Compression Device (SCD) *Heparin 5000 units SQ BID 3-4 Higher Order ONE of the following medications: *Heparin 5000 units SQ TID *Enoxaparin/Lovenox 40 mg SQ daily (WT < 150 kg, CrCl > 30 mL/min) *Enoxaparin/Lovenox 30 mg SQ daily (WT < 150 kg, CrCl > 10-29 mL/min) *Enoxaparin/Lovenox 30 mg SQ BID (WT < 150 kg, CrCl > 30 mL/min) AND/OR *Sequential Compression Device (SCD) 5 or more Highest Order ONE of the following medications: *Heparin 5000 units SQ TID (Preferred with Epidurals) *Enoxaparin/Lovenox 40 mg SQ daily (WT < 150 kg, CrCl > 30 mL/min) *Enoxaparin/Lovenox 30 mg SQ daily (WT < 150 kg, CrCl > 10-29 mL/min) *Enoxaparin/Lovenox 30 mg SQ BID (WT < 150 kg, CrCl > 30 mL/min) AND *Sequential Compression Device (SCD) Assessment and Plan Assessment and Plan 51-year-old male with past medical history of lung nodules who presented for right-sided chest and back pain Right-sided pneumothorax with pleuritic chest and back pain: Status post chest tube placement in the ED. Reviewed: Pre and post chest tube chest x-rays. Lung biopsy pathology. -Consult pulmonology, appreciate assistance with chest tube management -Nebs. Incentive spirometry. -Pain control with Pangburn and IV morphine Adenocarcinoma of the lung: New diagnosis. Seen on recent lung pathology. -Consult oncology, appreciate recommendations COPD: -Continue home pulmonary regimen -Pulmonology on board -Encouraged tobacco cessation DVT prophylaxis: SCDs Discussed Condition With Patient, ED staff Attending Statement This note was transcribed by raymond Adhikari. I, Dr. Javier Batista personally performed the history, physical exam, and medical decision making; and confirmed the accuracy of the information in the transcribed note. Authenticated by Dr. Javier Batista on 02/26/17 at 18:47. Luis Adhikari Feb 26, 2017 17:36 Javier Batista MD Feb 26, 2017 18:47
[2017-02-26 17:39] VITALS: BP 164/85; PULSE 92; RESP 19; O2SAT 95
[2017-02-26] MEDS ORDERED: SODIUM CHLORIDE 0.9% FLUSH 10 ML FLUSH IV FLUSH PRN (17:45)
[2017-02-26] MEDS ORDERED: BISACODYL 10 MG SUPP RECTAL PRN (17:45)
[2017-02-26] MEDS ORDERED: NALOXONE HCL 0.4 MG/ML AMP IV PUSH PRN (17:45)
[2017-02-26] MEDS ORDERED: SENNOSIDES 8.6 MG TAB PO PRN (17:45)
[2017-02-26] MEDS ORDERED: LACTULOSE SYRUP 20 GM/30 ML CUP PO PRN (17:45)
[2017-02-26] MEDS ORDERED: MAGNESIUM HYDROXIDE SUSP 30 ML CUP PO PRN (17:45)
[2017-02-26] MEDS ORDERED: RESP: ALBUTEROL 2.5 MG/3 ML NEB (PRN) NEB (17:45)
[2017-02-26] MEDS ORDERED: ACETAMINOPHEN/HYDROcodone 325 MG/5 MG TAB PO PRN (17:45)
[2017-02-26] MEDS ORDERED: ACETAMINOPHEN 325 MG TAB PO PRN ×2 (17:45)
[2017-02-26] MEDS ORDERED: ONDANSETRON HCL 4 MG/2 ML VIAL IVP PRN (17:45)
[2017-02-26] MEDS: MORPHINE SULFATE 4 MG/ML INJ IV PUSH PRN ×2 (19:59→23:50)
[2017-02-26] MEDS: SODIUM CHLORIDE 0.9% FLUSH 10 ML FLUSH IV FLUSH SCH (20:02)
[2017-02-26 20:15] VITALS: BP 156/82; PULSE 89; RESP 21; TEMP 96.9; O2SAT 92
[2017-02-26] MEDS: ACETAMINOPHEN/HYDROcodone 325 MG/10 MG TAB PO PRN (20:51)
[2017-02-27] VITALS (7 sets, daily range): BP systolic 126–141; BP diastolic 63–76; PULSE 78–99; RESP 16–20; TEMP 96.5–98.7; O2SAT 91–97
[2017-02-27] MEDS: ACETAMINOPHEN/HYDROcodone 325 MG/10 MG TAB PO PRN ×5 (02:54→23:24)
[2017-02-27] MEDS: MORPHINE SULFATE 4 MG/ML INJ IV PUSH PRN ×3 (05:34→19:52)
[2017-02-27 07:40] LABS: AUTOMATED NEUTROPHIL # 9.1 TH/MM3 (1.8-7.7); BASOPHIL # 0.1 TH/MM3 (0-0.2); BASOPHIL % 0.8 % (0.0-2.0); EOSINOPHIL # 0.3 TH/MM3 (0-0.4); EOSINOPHIL % 2.6 % (0.0-4.0); HEMATOCRIT 40.4 % (39.0-51.0); HEMO FLAGS DIFF FINAL; MEAN CELL VOLUME 101.7 FL (80.0-100.0); MEAN CORPUSCULAR HEMOGLOBIN 35.4 PG (27.0-34.0); MEAN CORPUSCULAR HGB CONC 34.8 % (32.0-36.0); MONO % 8.1 % (0.0-8.0); NEUT % 72.5 % (16.0-70.0); PLATELET COUNT 284 TH/MM3 (150-450); RED BLOOD COUNT 3.98 MIL/MM3 (4.50-5.90); WHITE BLOOD COUNT 12.5 TH/MM3 (4.0-11.0)
[2017-02-27] MEDS: RESP: ALBUTEROL 2.5 MG/IPRATROPIUM 0.5 MG NEB (SCH) NEB ×4 (08:25→19:22)
[2017-02-27] MEDS: predniSONE 10 MG TAB PO SCH (09:45)
[2017-02-27] MEDS: SODIUM CHLORIDE 0.9% FLUSH 10 ML FLUSH IV FLUSH SCH ×2 (09:45→19:53)
--- NOTE | 2017-02-27 13:07 | EKG ---
Date Performed: 02/26/2017 Time Performed: 16:11:34 PTAGE: 51 years EKG: Sinus rhythm NORMAL ECG PREVIOUS TRACING : 02/03/2017 00.33 Since previous tracing, no significant change. DOCTOR: Ramin Rodriguez Interpretating Date/Time 02/27/2017 13:06:20
--- NOTE | 2017-02-27 13:20 | MB ---
cc: LUIS ADHIKARI PA DEVERAS, RUBY ANNE E. M.D. DATE OF CONSULTATION: 02/27/2017 DATE OF [address] Luis Adhikari CHIEF COMPLAINT Dr. Adhikari requests consultation for Mr. Lorenzo with newly diagnosed lung cancer. HISTORY OF PRESENT ILLNESS Mr. Lorenzo is a 51-year-old man with chronic tobacco use. He had worsening chest tightness, sputum production and changes in his voice. He was seen in the emergency room on 02/03/[address] angiogram was performed that showed no pulmonary emboli. However, there were numerous bilateral pulmonary nodule and mediastinal adenopathy characteristic of metastatic disease. A bronchogenic carcinoma is considered. There is partial obstruction of superior vena cava and brachiocephalic veins. He came in and had a CT-guided lung biopsy coordinated on 02/23/2017. His course was complicated by pneumothorax. He came into the emergency room on 02/26/2017 with increasing shortness of breath, chest pain and cough. Chest x-ray showed moderate to large right pneumothorax on February 26, 2017 and a chest tube was placed. Hematology oncology consulted for the lung biopsy that came back as a moderately differentiated adenocarcinoma consistent with lung primary. The patient denies any fevers, chills or night sweats. He is most uncomfortable with the chest tube especially when he moves. He is comfortable with the amount of pain medication that is being administered. He has no family history in order to determine any hereditary component. He denies any numbness or tingling. He is noted to have a macrocytosis and a low normal B12 level. He denies any GI complaints. His alcohol level was elevated when he first came in. He smokes actively. The rest of his review of systems is negative. PAST MEDICAL HISTORY Pulmonary nodule, chest pain, voice changes. PAST SURGICAL HISTORY CT guided lung biopsy and pneumothorax. ALLERGIES PENICILLIN. MEDICATION Medications from home: None. FAMILY HISTORY Adopted, no family history from biologic parents. SOCIAL HISTORY He drinks a couple of drinks nightly. He smokes a pack a day for over 30 years. He denies any illicit drug use. 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 CURRENT MEDICATIONS 1. Prednisone. 2. DuoNeb. 3. [place] p.r.n. 4. ___ 5. Senokot p.r.n. PHYSICAL EXAMINATION VITAL SIGNS: Temperature 98.1, heart rate 78, respiratory rate 17, blood pressure 140/76, saturation 97%. GENERAL: Mr. Lorenzo is a well-developed, well-nourished man who looks his stated age. HEENT: His pupils are round, reactive to light and accommodation. Oropharynx is clear. NECK: Neck is supple. LUNGS: With good air entry on both sides. Chest tube is in the right place on the right. CARDIOVASCULAR: Exam reveals normal rate, rhythm. ABDOMEN: Abdomen is benign. EXTREMITIES: Lower extremities with no edema. He moves all four extremities. His voice is changing. LABORATORY DATA Mild macrocytosis, MCV 101, bilirubin mildly elevated at 1.3. Liver functions are normal. ASSESSMENT/PLAN Mr. Lorenzo is a 51-year-old man with long history of smoking and daily alcohol use. He is admitted for pneumothorax complicating a CT-guided lung biopsy. His diagnosis of [id number] lung cancer is confirmed. I had lengthy discussion about his clinical staging. It looks like he has metastatic disease with lung lesions on both sides. He has mediastinal involvement and possible compression of the superior vena cava. He gives no symptoms for a superior vena cava syndrome. He has no orthostasis, no dizziness, lightheadedness. He will need treatment promptly for metastatic [id number] lung cancer. He will need staging evaluation. We discussed outpatient CT PET scan which he is agreeable to. We will continue to follow while he is in the hospital. We will coordinate a CT PET scan, MRI of the brain and port placement on an outpatient basis. We will give him information on first-line chemotherapy. The treatment for metastatic [id number] lung cancer is changing. It is however still standard to use chemotherapy [place] and second line checkpoint inhibitors. His questions were answered to his satisfaction. Jennifer Vogel MD RAD/TLL /11:15 AM /12:54 PM
--- NOTE | 2017-02-27 13:28 | HHI.PR ---
Subjective Remarks Follow up pneumothorax. Patient still having some discomfort at the site of the chest tube. Denies dyspnea. Feels better overall today. Objective Vitals Vital Signs Date Time Temp Pulse Resp B/P (MAP) Pulse Ox O2 Delivery O2 Flow Rate FiO2 02/27/17 12:00 98.2 78 16 131/63 (85) 91 02/27/17 08:24 96 21 02/27/17 08:00 98.0 78 17 140/76 (97) 97 02/27/17 07:00 96 Room Air 02/27/17 00:19 98.7 99 20 126/67 (86) 95 02/26/17 21:39 Nasal Cannula 2.00 02/26/17 20:15 96.9 89 21 156/82 (106) 92 02/26/17 18:53 02/26/17 17:39 92 19 164/85 (111) 95 Nasal Cannula 2.00 02/26/17 17:04 83 14 136/68 (90) 95 2.00 02/26/17 16:16 96 Nasal Cannula 2.00 02/26/17 15:41 (118) Nasal Cannula 2.00 02/26/17 15:20 96 Nasal Cannula 2.00 02/26/17 15:19 92 17 95 Nasal Cannula 2.00 02/26/17 15:12 92 Room Air 02/26/17 14:44 97.9 98 20 169/93 (118) 96 I/O 02/26/17 02/26/17 02/26/17 02/27/17 02/27/17 02/27/17 07:00 15:00 23:00 07:00 15:00 23:00 Intake Total 0 ml 360 ml Output Total 2 ml 820 ml Balance -2 ml -460 ml Intake Oral 360 ml IV Total 0 ml Output Urine Total 800 ml Chest Tube Drainage Total 2 ml 20 ml Result Diagram: 02/27/17 0640 02/26/17 1530 Imaging Last Impressions Chest X-Ray 02/26/17 1703 Signed Impressions: Service Date/Time: Sunday, February 26, 2017 17:06 - CONCLUSION: 1. Interval placement of right-sided chest tube with no residual right pneumothorax. 2. Patchy opacity right lung base most consistent with atelectasis. 3. The previously noted left pulmonary nodule is not well-visualized. Moy Maier MD Objective Remarks General: No acute distress. Heart: Regular rate and rhythm. No murmur. Lungs: Clear to auscultation bilaterally. No wheezes, rales, or rhonchi. Breathing is nonlabored. Right-sided chest tube in place. Abdomen: Soft, nontender, nondistended. Extremities: No lower extremity edema. Psych: Alert and oriented. Procedures None Urinary Catheter: No Vascular Central Line Catheter: No A/P Problem List: (1) Adenocarcinoma, lung ICD Code: C34.90 - Malignant neoplasm of unspecified part of unspecified bronchus or lung (2) COPD (chronic obstructive pulmonary disease) ICD Code: J44.9 - Chronic obstructive pulmonary disease, unspecified (3) Pneumothorax after biopsy ICD Code: J95.811 - Postprocedural pneumothorax Status: Acute Assessment and Plan 1. Pneumothorax, right: Secondary to CT-guided lung biopsy. Status post chest tube placement in the emergency department. Appreciate pulmonology management of chest tube. Continue incentive spirometry, nebulizer treatments. Continue pain control. 2. Adenocarcinoma of the long: Newly diagnosed. Appreciate oncology recommendations. Will need further staging workup as outpatient. 3. COPD: Continue current medications. Appreciate pulmonology recommendations. 4. DVT prophylaxis: SCDs. Javier Batista MD Feb 27, 2017 13:28
[2017-02-28] VITALS (10 sets, daily range): BP systolic 127–137; BP diastolic 61–71; PULSE 85–100; RESP 17–18; TEMP 95.9–97.9; O2SAT 92–96
[2017-02-28] MEDS: MORPHINE SULFATE 4 MG/ML INJ IV PUSH PRN ×3 (01:54→21:27)
[2017-02-28] MEDS: ACETAMINOPHEN/HYDROcodone 325 MG/10 MG TAB PO PRN ×3 (05:53→20:16)
[2017-02-28] MEDS: RESP: ALBUTEROL 2.5 MG/IPRATROPIUM 0.5 MG NEB (SCH) NEB ×4 (07:29→20:00)
--- NOTE | 2017-02-28 08:10 | MB ---
cc: SHIRA TORRES R. STEVEN M.D. DATE OF CONSULTATION: 02/27/2017 HISTORY OF PRESENT ILLNESS: Mr. Lorenzo is a 51-year-old white male who recently had a right lower lobe nodule biopsied and presented back to the emergency room yesterday with shortness of breath and chest pain. Chest x-ray revealed a pneumothorax. A chest tube was inserted and follow up film reveals complete re-expansion. He has been stable overnight with a little discomfort where the chest tube is. There is no persistent air leak. O2 sats on two liters are 96%. The patient presented with multiple lung nodules and mediastinal adenopathy and the biopsy was arranged by Dr. Torres as an outpatient. He is a smoker and has been trying to cut back, but has a 30 to 40 pack-year smoking history. The pathology report from 02/23 reveals moderately differentiated adenocarcinoma. He has extensive mediastinal adenopathy and apparently the oncologist was in to see him earlier today. He has had no hemoptysis. Minimal chest pain on deep inspiration, shortness of breath is relieved after chest tube insertion. PAST SURGICAL HISTORY Negative. PAST MEDICAL HISTORY Other than biopsy of the lung and these nodules apparently negative. SOCIAL HISTORY Smoking noted, 2-3 ounces of alcohol a day. ALLERGIES Penicillin. REVIEW OF SYSTEMS Pulmonary: As noted above. No other complaints. PHYSICAL EXAMINATION: Neck: No adenopathy in the neck, supraclavicular region. No crepitance is palpable in the chest or neck. Lungs: Lungs are clear, equal bilaterally. Heart: No harsh murmur. Chest tube in place. No leak. Extremities: No peripheral edema or cyanosis. DISCUSSION Mr. Lorenzo presented with pneumothorax after his recent percutaneous biopsy. He is stable now. The tube is in place. His lung is reexpanded. Oncology has already seen him and is discussing therapy. Dr. Torres will see him back in the morning. I have ordered a follow up chest x-ray in the morning and left additional orders for the nurse. I did speak to the nurse. Apparently the tube had been clamped at some point and I told them not to clamp the tube without a direct physician order. The patient is stable. R. MD ABDON Abebe/JESSENIA /11:48 AM /8:03 AM
[2017-02-28] MEDS: predniSONE 10 MG TAB PO SCH (08:39)
[2017-02-28] MEDS: SODIUM CHLORIDE 0.9% FLUSH 10 ML FLUSH IV FLUSH SCH ×2 (08:39→20:17)
--- NOTE | 2017-02-28 09:36 | PD.ONC.PN ---
Subjective Subjective Remarks Afebrile overnight. Patient resting in room. He is anxious and hopeful to go home soon, but states he doesn't want to go home too early and then have to come back. Objective Data Date Time Temp Pulse Resp B/P (MAP) Pulse Ox O2 Delivery O2 Flow Rate FiO2 02/28/17 08:00 95.9 90 17 134/67 (89) 95 02/28/17 07:32 95 Nasal Cannula 2.00 02/28/17 04:18 97.8 88 18 127/61 (83) 92 02/28/17 00:19 96.7 89 18 133/67 (89) 96 02/27/17 20:59 96.5 78 18 132/63 (86) 92 02/27/17 20:26 Nasal Cannula 2.00 02/27/17 19:22 96 Nasal Cannula 2.00 02/27/17 17:20 92 Nasal Cannula 2.00 02/27/17 16:00 97.6 86 16 141/68 (92) 92 02/27/17 12:00 98.2 78 16 131/63 (85) 91 02/28/17 02/28/17 02/28/17 07:00 15:00 23:00 Intake Total 580 ml Output Total 1497 ml Balance -917 ml Result Diagram: 02/27/17 0640 02/26/17 1530 Administered Medications Medications (Trade) Dose Ordered Sig/Nate Route PRN Reason Start Time Stop Time Status Last Admin Dose Admin Sodium Chloride (NS Flush) 2 ml BID IV FLUSH 02/26/17 21:00 02/28/17 08:39 Acetaminophen/ Hydrocodone Bitart ([place] 10-325 Mg) 1 tab Q4H PRN PO PAIN SCALE 6 TO 10 02/26/17 17:45 02/28/17 05:53 Morphine Sulfate (Morphine Inj) 3 mg Q4HR PRN IV PUSH BREAKTHROUGH PAIN 02/26/17 17:45 02/28/17 01:54 Albuterol/ Ipratropium (Duoneb Neb) 1 ampule QID NEB NEB 02/26/17 20:00 02/28/17 07:29 Prednisone (Deltasone) 10 mg DAILY PO 02/27/17 09:00 02/28/17 08:39 Objective Remarks GENERAL: Middle aged male upright in bed in nad. SKIN: Warm and dry. HEAD: Normocephalic. EYES: No injection or drainage. NECK: Supple, trachea midline. CARDIOVASCULAR: Regular rate and rhythm RESPIRATORY: diminished at bases, scattered rhonchi. CT in place, right chest wall GASTROINTESTINAL: Abdomen soft, non-tender, nondistended. EXTREMITIES: No cyanosis NEUROLOGICAL: awake and alert, normal speech. moving all extremities. Assessment/Plan Problem List: (1) Adenocarcinoma, lung ICD Codes: C34.90 - Malignant neoplasm of unspecified part of unspecified bronchus or lung Plan: ++chronic tobacco use. ++worsening chest tightness, sputum production and changes in his voice. He was seen in the --CTA, 02/03 showed numerous bilateral pulmonary nodule and mediastinal adenopathy characteristic of metastatic disease. +partial obstruction of superior vena cava and brachiocephalic veins. --CT-guided lung biopsy, 02/23/2017. path=adenocarcinoma --looks like he has metastatic disease with lung lesions on both sides. + mediastinal involvement and possible compression of the superior vena cava. --gives no symptoms for a superior vena cava syndrome. --will need staging evaluation --CT PET scan, MRI of the brain and port placement on an outpatient basis. Assessment 51y/o male with newly diagnosed lung cancer. Plan 1. fs faxed to new patient referrals 2. monitor CT output. 3. once discharged will arrange outpatient follow up, staging and port placement. Attending Statement The exam, history, and the medical decision-making described in the above note were completed with the assistance of the mid-level provider. I reviewed and agree with the findings presented. I attest that I had a [id number] encounter with the patient on the same day, and personally performed and documented my assessment and findings in the medical record. Pt seen and examined. Clinically better, chest tube still in place, trying to get work affairs inorder. Discussed plan to fu as out pt. Referred pt to our lung navigator. FU w/ ALEXIA when DC. Josefa Mcginnis Feb 28, 2017 09:36 Jennifer Vogel MD Feb 28, 2017 18:25
--- NOTE | 2017-02-28 10:15 | RADRPT ---
EXAM DATE/TIME: 02/28/2017 09:52 [facility] COMPARISON: CHEST SINGLE AP, February 26, 2017, 17:06. INDICATIONS : Pneumothorax. MEDICAL HISTORY : biopsy in 02/2017 SURGICAL HISTORY : None. ENCOUNTER: Initial ACUITY: 1 day PAIN SCORE: 0/10 LOCATION: Bilateral chest FINDINGS: A right chest tube is in place. There is no evidence of pneumothorax. There is subsegmental atelectas is in the right base. The cardiac silhouette is enlarged in transverse diameter. A 15 mm nodules also identified within the left lung. CONCLUSION: Minor Valentin MD on February 28, 2017 at 10:10 Board Certified Radiologist. This report was verified electronically.
--- NOTE | 2017-02-28 14:57 | HHI.PR ---
Subjective Remarks Follow up pneumothorax, lung cancer. Patient with discomfort around chest tube, but otherwise no complaints. Denies chest pain, dyspnea. Objective Vitals Vital Signs Date Time Temp Pulse Resp B/P (MAP) Pulse Ox O2 Delivery O2 Flow Rate FiO2 02/28/17 12:06 18 02/28/17 12:00 97.9 85 17 131/63 (85) 92 02/28/17 11:45 94 21 02/28/17 08:40 Nasal Cannula 2.00 02/28/17 08:00 95.9 90 17 134/67 (89) 95 02/28/17 07:32 95 Nasal Cannula 2.00 02/28/17 04:18 97.8 88 18 127/61 (83) 92 02/28/17 00:19 96.7 89 18 133/67 (89) 96 02/27/17 20:59 96.5 78 18 132/63 (86) 92 02/27/17 20:26 Nasal Cannula 2.00 02/27/17 19:22 96 Nasal Cannula 2.00 02/27/17 17:20 92 Nasal Cannula 2.00 02/27/17 16:00 97.6 86 16 141/68 (92) 92 I/O 02/27/17 02/27/17 02/27/17 02/28/17 02/28/17 02/28/17 07:00 15:00 23:00 07:00 15:00 23:00 Intake Total 360 ml 700 ml 580 ml Output Total 820 ml 48 ml 1497 ml Balance -460 ml 652 ml -917 ml Intake Oral 360 ml 700 ml 580 ml IV Total 0 ml Output Urine Total 800 ml 1475 ml Chest Tube Drainage Total 20 ml 48 ml 22 ml # Voids 4 # Bowel Movements 0 Result Diagram: 02/27/17 0640 02/26/17 1530 Imaging Last Impressions Chest X-Ray 02/28/17 0800 Signed Impressions: Service Date/Time: Tuesday, February 28, 2017 09:52 - CONCLUSION: Minor Valentin MD Objective Remarks General: No acute distress. Heart: Regular rate and rhythm. No murmur. Lungs: Clear to auscultation bilaterally. No wheezes, rales, or rhonchi. Breathing is nonlabored. Right-sided chest tube in place. Abdomen: Soft, nontender, nondistended. Extremities: No lower extremity edema. Psych: Alert and oriented. Procedures None Urinary Catheter: No Vascular Central Line Catheter: No A/P Problem List: (1) Adenocarcinoma, lung ICD Code: C34.90 - Malignant neoplasm of unspecified part of unspecified bronchus or lung (2) COPD (chronic obstructive pulmonary disease) ICD Code: J44.9 - Chronic obstructive pulmonary disease, unspecified (3) Pneumothorax after biopsy ICD Code: J95.811 - Postprocedural pneumothorax Status: Acute Assessment and Plan 02/28/17: No change. Pulmonology to manage chest tube. Appreciate oncology recommendations. 1. Pneumothorax, right: Secondary to CT-guided lung biopsy. Status post chest tube placement in the emergency department. Appreciate pulmonology management of chest tube. Continue incentive spirometry, nebulizer treatments. Continue pain control. 2. Adenocarcinoma of the long: Newly diagnosed. Appreciate oncology recommendations. Will need further staging workup as outpatient. 3. COPD: Continue current medications. Appreciate pulmonology recommendations. 4. DVT prophylaxis: SCDs. Discharge Planning After chest tube removed and cleared by pulmonology. Javier Batista MD Feb 28, 2017 14:57
[2017-03-01] VITALS (7 sets, daily range): BP systolic 129–158; BP diastolic 63–85; PULSE 20–108; RESP 18–20; TEMP 97–98.8; O2SAT 94–98
[2017-03-01] MEDS: ACETAMINOPHEN/HYDROcodone 325 MG/10 MG TAB PO PRN ×4 (01:32→21:06)
[2017-03-01] MEDS: MORPHINE SULFATE 4 MG/ML INJ IV PUSH PRN ×4 (03:40→23:51)
--- NOTE | 2017-03-01 06:43 | RADRPT ---
EXAM DATE/TIME: 03/01/2017 06:01 [facility] COMPARISON: CHEST PA & LAT, February 28, 2017, 9:52. INDICATIONS : Short of breath. MEDICAL HISTORY : None. SURGICAL HISTORY : None. ENCOUNTER: Subsequent ACUITY: 2 days PAIN SCORE: Non-responsive. LOCATION: Bilateral chest FINDINGS: A single view of the chest demonstrates right chest tube without pneumothorax. There is mediastinal a denopathy and multiple pulmonary nodules similar to prior exam. Mild basilar atelectasis. No signific ant change from February 28. CONCLUSION: 1. Right chest tube without significant pneumothorax. Mediastinal adenopathy with multiple pulmonary nodules again noted. Basal atelectasis similar to prior exam. Cesar Johns MD on March 01, 2017 at 6:40 Board Certified Radiologist. This report was verified electronically.
--- NOTE | 2017-03-01 06:56 | MB ---
cc: SHIRA COLEMAN DATE OF CONSULTATION 02/28/2017 REASON FOR CONSULTATION Pneumothorax status post lung biopsy HISTORY OF PRESENT ILLNESS This is a 51-year-old man with a history of COPD and a history of chronic smoking. He was initially admitted two weeks ago with cough, chest tightness, hoarseness and shortness of breath. He had a CT angiogram on 02/03 and it showed no pulmonary emboli but numerous pulmonary nodules and mediastinal adenopathy characteristic of metastatic disease. The patient was advised to have a CT-guided biopsy and this was performed on 02/23/2017. The patient developed a pneumothorax following the biopsy and was seen in the emergency room on 02/26 for progressive shortness of breath and chest pain and cough. Upon arrival he had a large right pneumothorax and a chest tube was inserted following which the pneumothorax had resolved. His tissue biopsy came back as moderately differentiated adenocarcinoma consistent with a lung primary. The patient has no hemoptysis, no fevers, chills and denies any shortness of breath at this time but is on oxygen at 2 liters. He is being evaluated by Oncology. Most recent chest x-ray shows resolution of the pneumothorax. PAST MEDICAL HISTORY History of recurrent bronchitis. PAST SURGICAL HISTORY No history of surgery. ALLERGIES PENICILLIN. FAMILY HISTORY Noncontributory. HABITS The patient smokes a pack per day, has done so for over 35 years. Drinks alcohol regularly. Denies exposure to asbestos. REVIEW OF SYSTEMS The patient denies recent weight loss. He has no night sweats, fevers, chills. He has cough and wheezing and orthopnea. No abdominal pains. No reflux. Denies urinary symptoms, flank pain. There is no leg or calf muscle pains and no depression. PHYSICAL EXAMINATION GENERAL: This is an averagely built, middle-aged white male in no acute distress. No cyanosis or icterus. VITAL SIGNS: Blood pressure 132/80, pulse is 85, respirations 22, temperature 98.2. HEENT: Head normocephalic. Pupils are reactive. Tongue moist. Throat is mildly injected. NECK: Supple. No bruits or thyroid enlargement. CHEST: Distant breath sounds over the right lung field and occasional wheezes bilaterally. HEART SOUNDS: Regular S1 and S2. No murmur. ABDOMEN: Soft, benign. No masses, no organomegaly. EXTREMITIES: No edema. No lesions. Reflexes are normal with no gross motor deficits. IMPRESSION 1. COPD. 2. Bilateral lung nodule with mediastinal adenopathy. 3. Adenocarcinoma of the lung with metastatic disease. 4. History of hypertension. PLAN 1. The patient had a CT of the right lung nodule which was positive for adenocarcinoma. 2. Further evaluation including PET/CT to be done next week. 3. He was seen by Dr. Vogel from Oncology. 4. He was also placed on nebulized DuoNeb solution three times daily and p.r.n. 5. He could possibly be discharged for outpatient followup. Thank you Dr. Barrios for this consultation. MD MATEO Oden/JEWELL /10:52 PM /6:46 AM
[2017-03-01] MEDS: predniSONE 10 MG TAB PO SCH (08:17)
[2017-03-01] MEDS: SODIUM CHLORIDE 0.9% FLUSH 10 ML FLUSH IV FLUSH SCH ×2 (08:19→21:06)
[2017-03-01] MEDS: RESP: ALBUTEROL 2.5 MG/IPRATROPIUM 0.5 MG NEB (SCH) NEB ×4 (08:38→20:10)
--- NOTE | 2017-03-01 11:13 | HHI.PR ---
Subjective Remarks Follow up pneumothorax. Patient still having some discomfort at the site of the chest tube, only with movement. No dyspnea, cough. Objective Vitals Vital Signs Date Time Temp Pulse Resp B/P (MAP) Pulse Ox O2 Delivery O2 Flow Rate FiO2 03/01/17 08:38 95 21 03/01/17 08:00 98.8 20 20 158/82 (107) 96 03/01/17 04:00 18 03/01/17 02:44 18 03/01/17 00:00 97.4 99 18 129/63 (85) 94 02/28/17 20:15 Room Air 02/28/17 20:06 95 02/28/17 20:00 97.6 100 18 131/71 (91) 94 02/28/17 16:25 94 02/28/17 16:00 97.9 99 17 137/69 (91) 93 02/28/17 12:00 97.9 85 17 131/63 (85) 92 02/28/17 11:45 94 21 I/O 02/28/17 02/28/17 02/28/17 03/01/17 03/01/17 03/01/17 07:00 15:00 23:00 07:00 15:00 23:00 Intake Total 580 ml 702 ml Output Total 1497 ml 950 ml 42 ml Balance -917 ml -248 ml -42 ml Intake Oral 580 ml 702 ml Output Urine Total 1475 ml 950 ml Chest Tube Drainage Total 22 ml 42 ml # Bowel Movements 0 Result Diagram: 02/27/17 0640 02/26/17 1530 Imaging Last Impressions Chest X-Ray 03/01/17 0600 Signed Impressions: Service Date/Time: Wednesday, March 01, 2017 06:01 - CONCLUSION: 1. Right chest tube without significant pneumothorax. Mediastinal adenopathy with multiple pulmonary nodules again noted. Basal atelectasis similar to prior exam. Cesar Johns MD Objective Remarks General: No acute distress. Heart: Regular rate and rhythm. No murmur. Lungs: Clear to auscultation bilaterally. No wheezes, rales, or rhonchi. Breathing is nonlabored. Right-sided chest tube in place. Abdomen: Soft, nontender, nondistended. Extremities: No lower extremity edema. Psych: Alert and oriented. Procedures None Urinary Catheter: No Vascular Central Line Catheter: No A/P Problem List: (1) Adenocarcinoma, lung ICD Code: C34.90 - Malignant neoplasm of unspecified part of unspecified bronchus or lung (2) COPD (chronic obstructive pulmonary disease) ICD Code: J44.9 - Chronic obstructive pulmonary disease, unspecified (3) Pneumothorax after biopsy ICD Code: J95.811 - Postprocedural pneumothorax Status: Acute Assessment and Plan 03/01/17: No change. Pulmonology managing chest tube. Appreciate oncology recommendations. 1. Pneumothorax, right: Secondary to CT-guided lung biopsy. Status post chest tube placement in the emergency department. Appreciate pulmonology management of chest tube. Continue incentive spirometry, nebulizer treatments. Continue pain control. 2. Adenocarcinoma of the long: Newly diagnosed. Appreciate oncology recommendations. Will need further staging workup as outpatient. 3. COPD: Continue current medications. Appreciate pulmonology recommendations. 4. DVT prophylaxis: SCDs. Discharge Planning After chest tube removed and cleared by pulmonology. Javier Batista MD Mar 01, 2017 11:12
--- NOTE | 2017-03-01 12:36 | HHI.PR ---
Subjective Remarks Has no SOB . CXR shows no Pneumo. Sen by Dr Vogel. Will have chemotherapy soon Objective Vital Signs Date Time Temp Pulse Resp B/P (MAP) Pulse Ox O2 Delivery O2 Flow Rate FiO2 03/01/17 08:38 95 21 03/01/17 08:00 98.8 20 20 158/82 (107) 96 03/01/17 04:00 18 03/01/17 02:44 18 03/01/17 00:00 97.4 99 18 129/63 (85) 94 02/28/17 20:15 Room Air 02/28/17 20:06 95 02/28/17 20:00 97.6 100 18 131/71 (91) 94 02/28/17 16:25 94 02/28/17 16:00 97.9 99 17 137/69 (91) 93 I/O 02/28/17 02/28/17 02/28/17 03/01/17 03/01/17 03/01/17 07:00 15:00 23:00 07:00 15:00 23:00 Intake Total 580 ml 702 ml Output Total 1497 ml 950 ml 42 ml Balance -917 ml -248 ml -42 ml Intake Oral 580 ml 702 ml Output Urine Total 1475 ml 950 ml Chest Tube Drainage Total 22 ml 42 ml # Bowel Movements 0 Result Diagram: 02/27/17 0640 02/26/17 1530 Objective Remarks GENERAL: This is an averagely built, middle-aged white male in no acute distress. No cyanosis or icterus. . HEENT: Head normocephalic. Pupils are reactive. Tongue moist. Throat is mildly injected. NECK: Supple. No bruits or thyroid enlargement. CHEST: Distant breath sounds over the right lung field and occasional wheezes bilaterally. HEART SOUNDS: Regular S1 and S2. No murmur. ABDOMEN: Soft, benign. No masses, no organomegaly. EXTREMITIES: No edema. No lesions. Reflexes are normal with no gross motor deficits. IMPRESSION 1. COPD. 2. Bilateral lung nodule with mediastinal adenopathy. 3. Adenocarcinoma of the lung with metastatic disease. 4. History of hypertension. 5. Resolved Right Pneumothorax after lung Biopsy Plan : 1. Clamp Chest tube. 2. Rpt CXR at 4 PM. 3. Nebs qid , duoneb. 4. D/C CHest tube if Chest Xray is OK after Clamping 5. D/C O2 if sat >92. Jono Torres MD Mar 01, 2017 12:35
--- NOTE | 2017-03-01 17:45 | RADRPT ---
EXAM DATE/TIME: 03/01/2017 17:16 [facility] COMPARISON: CHEST SINGLE AP, March 01, 2017, 6:01. INDICATIONS : Short of breath. MEDICAL HISTORY : None. SURGICAL HISTORY : None. ENCOUNTER: Initial ACUITY: 1 day PAIN SCORE: 0/10 LOCATION: Bilateral chest FINDINGS: Linear atelectasis right lung base. Lungs are otherwise clear. Cardiomegaly. Degenerative changes of the spine. Right-sided chest tube is present without obvious pneumothorax. CONCLUSION: Right basilar atelectasis. Evelio Ag MD on March 01, 2017 at 17:43 Board Certified Radiologist. This report was verified electronically.
[2017-03-02 00:25] VITALS: BP 99/57; PULSE 108; RESP 17; TEMP 97.8; O2SAT 97
[2017-03-02] MEDS: ACETAMINOPHEN/HYDROcodone 325 MG/10 MG TAB PO PRN ×3 (01:07→08:52)
[2017-03-02] MEDS: MORPHINE SULFATE 4 MG/ML INJ IV PUSH PRN (04:25)
[2017-03-02 08:00] VITALS: BP 135/71; PULSE 90; RESP 15; TEMP 96.6; O2SAT 92
[2017-03-02] MEDS: SODIUM CHLORIDE 0.9% FLUSH 10 ML FLUSH IV FLUSH SCH (08:50)
[2017-03-02] MEDS: predniSONE 10 MG TAB PO SCH (08:50)
[2017-03-02] MEDS: RESP: ALBUTEROL 2.5 MG/IPRATROPIUM 0.5 MG NEB (SCH) NEB ×3 (08:58→16:15)
[2017-03-02 12:00] VITALS: BP 127/71; PULSE 90; RESP 16; TEMP 98.2; O2SAT 93
--- NOTE | 2017-03-02 12:38 | HHI.PR ---
Subjective Remarks Has no SOB . CXR shows no Pneumo.Tube was clamped for [address] Vogel. Will have chemotherapy soon Objective Vital Signs Date Time Temp Pulse Resp B/P (MAP) Pulse Ox O2 Delivery O2 Flow Rate FiO2 03/02/17 08:00 96.6 90 15 135/71 (92) 92 03/02/17 06:08 18 03/02/17 02:07 18 03/02/17 00:25 97.8 108 17 99/57 (71) 97 03/01/17 20:13 96 03/01/17 20:07 97.0 100 18 131/85 (100) 98 03/01/17 19:15 Room Air 03/01/17 16:00 97.9 108 18 149/71 (97) 94 I/O 03/01/17 03/01/17 03/01/17 03/02/17 03/02/17 03/02/17 07:00 15:00 23:00 07:00 15:00 23:00 Intake Total 760 ml Output Total 42 ml Balance -42 ml 760 ml Intake Oral 760 ml Chest Tube Drainage Total 42 ml # Voids 3 4 Result Diagram: 02/27/17 0640 02/26/17 1530 Objective Remarks GENERAL: This is an averagely built, middle-aged white male in no acute distress. No cyanosis or icterus. . HEENT: Head normocephalic. Pupils are reactive. Tongue moist. Throat is mildly injected. NECK: Supple. No bruits or thyroid enlargement. CHEST: Distant breath sounds over the right lung field and occasional wheezes bilaterally.Chest tube in. HEART SOUNDS: Regular S1 and S2. No murmur. ABDOMEN: Soft, benign. No masses, no organomegaly. EXTREMITIES: No edema. No lesions. Reflexes are normal with no gross motor deficits. Assessment and Plan Assessment and Plan Assessment: 1. D/C Chest tube. 2. Rpt CXR at 3 PM. 3. Continue Symbicort inhaler 2 puffs bid. 4. OK to Go home if Chest Xray is stable. Jono Torres MD Mar 02, 2017 12:38
--- NOTE | 2017-03-02 13:28 | HHI.PR ---
Subjective Remarks Follow up pneumothorax. Patient has no complaints at this time. Denies chest pain, dyspnea. Chest tube removed. Objective Vitals Vital Signs Date Time Temp Pulse Resp B/P (MAP) Pulse Ox O2 Delivery O2 Flow Rate FiO2 03/02/17 12:00 98.2 90 16 127/71 (89) 93 03/02/17 08:00 96.6 90 15 135/71 (92) 92 03/02/17 06:08 18 03/02/17 02:07 18 03/02/17 00:25 97.8 108 17 99/57 (71) 97 03/01/17 20:13 96 03/01/17 20:07 97.0 100 18 131/85 (100) 98 03/01/17 19:15 Room Air 03/01/17 16:00 97.9 108 18 149/71 (97) 94 I/O 03/01/17 03/01/17 03/01/17 03/02/17 03/02/17 03/02/17 07:00 15:00 23:00 07:00 15:00 23:00 Intake Total 760 ml Output Total 42 ml Balance -42 ml 760 ml Intake Oral 760 ml Chest Tube Drainage Total 42 ml # Voids 3 4 Result Diagram: 02/27/17 0640 02/26/17 1530 Imaging Last Impressions Chest X-Ray 03/01/17 1600 Signed Impressions: Service Date/Time: Wednesday, March 01, 2017 17:16 - CONCLUSION: Right basilar atelectasis. Evelio Ag MD Objective Remarks General: No acute distress. Ambulating in the room. Heart: Regular rate and rhythm. No murmur. Lungs: Clear to auscultation bilaterally. No wheezes, rales, or rhonchi. Breathing is nonlabored. Abdomen: Soft, nontender, nondistended. Extremities: No lower extremity edema. Psych: Alert and oriented. Procedures 02/26/17 Chest tube placement Urinary Catheter: No Vascular Central Line Catheter: No A/P Problem List: (1) Adenocarcinoma, lung ICD Code: C34.90 - Malignant neoplasm of unspecified part of unspecified bronchus or lung (2) COPD (chronic obstructive pulmonary disease) ICD Code: J44.9 - Chronic obstructive pulmonary disease, unspecified (3) Pneumothorax after biopsy ICD Code: J95.811 - Postprocedural pneumothorax Status: Acute Assessment and Plan 03/02/17: Chest tube removed. Repeat CXR ordered for 1500. Discharge home if CXR is unremarkable. 1. Pneumothorax, right: Secondary to CT-guided lung biopsy. Status post chest tube placement in the emergency department. Appreciate pulmonology management of chest tube. Continue incentive spirometry, nebulizer treatments. Continue pain control. 2. Adenocarcinoma of the long: Newly diagnosed. Appreciate oncology recommendations. Will need further staging workup as outpatient. 3. COPD: Continue current medications. Appreciate pulmonology recommendations. 4. DVT prophylaxis: SCDs. Discharge Planning Plan for discharge home this afternoon pending repeat CXR. Javier Batista MD Mar 02, 2017 13:28
--- NOTE | 2017-03-02 13:29 | HHI.DCPOC ---
Discharge Care Plan Diagnosis: (1) Adenocarcinoma, lung (2) COPD (chronic obstructive pulmonary disease) (3) Pneumothorax after biopsy (4) Lung nodule < 6cm on CT Goals to Promote Your Health * To prevent worsening of your condition and complications * To maintain your health at the optimal level Directions to Meet Your Goals Take your medications as prescribed Follow your dietary instruction Follow activity as directed Keep your appointments as scheduled Take your immunizations and boosters as scheduled If your symptoms worsen call your PCP, if no PCP go to Urgent Care Center or Emergency Room Smoking is Dangerous to Your Health. Avoid second hand smoke Call the 24-hour hour crisis hotline for domestic abuse at Javier Batista MD Mar 02, 2017 13:29
[2017-03-02] MEDS ORDERED: HYDR-3516 PO (13:31)
--- NOTE | 2017-03-02 15:34 | RADRPT ---
EXAM DATE/TIME: 03/02/2017 14:50 [facility] COMPARISON: CHEST SINGLE AP, February 26, 2017, 15:41. CHEST EXPIRATION ONLY, February 23, 2017, 11:30. CHEST SINGLE AP, February 26, 2017, 17:06. CT NEEDLE BIOPSY LUNG, RIGHT, Septemb er 2016, 8:13. CHEST SINGLE AP, March 01, 2017, 17:16. INDICATIONS : Evaluate for pneumothorax status post right lung biopsy. MEDICAL HISTORY : None. SURGICAL HISTORY : None. ENCOUNTER: Subsequent ACUITY: 1 week PAIN SCORE: 0/10 LOCATION: Chest FINDINGS: Study is abnormal. Coarse parenchymal changes are present in both lungs. The right ch est tube has been removed. Heart and pulmonary vascularity are normal. CONCLUSION: There is no pneumothorax. Nato Muro MD FACR on March 02, 2017 at 15:27 Board Certified Radiologist. This report was verified electronically.
--- NOTE | 2017-03-02 15:43 | HHI.DS ---
Discharge Summary Admission Date Feb 26, 2017 at 17:59 Discharge Date: Mar 02, 2017 Admitting Diagnosis (1) Adenocarcinoma, lung ICD Code: C34.90 - Malignant neoplasm of unspecified part of unspecified bronchus or lung (2) COPD (chronic obstructive pulmonary disease) ICD Code: J44.9 - Chronic obstructive pulmonary disease, unspecified (3) Pneumothorax after biopsy ICD Code: J95.811 - Postprocedural pneumothorax Status: Acute Procedures 02/26/17 Chest tube placement Brief History - From Admission Written by Luis Adhikari, acting as scribe for Dr. Batista on 02/26/17 at 17:36. 51-year-old male with past medical history of lung nodules who presented for right-sided chest and back pain. The patient had a lung biopsy on Tuesday of this week secondary to recent lung nodules that were found. He states that since that time he's been having chest pain and upper back pain, worse on the right side. He's been having a nonproductive cough, denies any hemoptysis. He' s been having progressively worsening shortness of breath. He was found to have a right pneumothorax in the ED and a chest tube was placed. Currently he complains of discomfort from the chest tube. His cylinder loader is Dr. Torres. He denies any nausea, vomiting, diarrhea, constipation, fever, chills, vision changes, numbness, tingling. CBC/BMP: 02/27/17 0640 02/26/17 1530 Imaging Last Impressions Chest X-Ray 03/01/17 1600 Signed Impressions: Service Date/Time: Wednesday, March 01, 2017 17:16 - CONCLUSION: Right basilar atelectasis. Evelio Ag MD PE at Discharge General: No acute distress. Ambulating in the room. Heart: Regular rate and rhythm. No murmur. Lungs: Clear to auscultation bilaterally. No wheezes, rales, or rhonchi. Breathing is nonlabored. Abdomen: Soft, nontender, nondistended. Extremities: No lower extremity edema. Psych: Alert and oriented. Hospital Course Patient was admitted for management of pneumothorax with right chest tube in place. Pulmonology was consulted for management of chest tube. Patient's symptoms improved. Oncology was consulted for evaluation/management of lung cancer. Chest tube was clamped, and removed. Repeat chest x-ray showed no evidence of pneumothorax. Patient was cleared for discharge by pulmonology. Pt Condition on Discharge: Stable Discharge Disposition: Discharge Home Discharge Time: > 30 minutes Discharge Instructions DIET: Follow Instructions for: As Tolerated, No Restrictions Activities you can perform: Regular-No Restrictions Follow up Referrals: Oncology - 1 Week with Jennifer Vogel MD PCP Follow-up - 2 Weeks Pulmonology - 2 Weeks with Jono Torres MD New Medications: Hydrocodone-Acetaminophen (Hydrocodone-Acetaminophen) 5-325 mg Tab 1 TAB PO Q4H PRN for PAIN SCALE 4 TO 10, #10 TAB 0 Refills Continued Medications: Albuterol 8.5 GM Inh (Proair Hfa 8.5 GM Inh) 90 Mcg/Act Aer 1 PUFF INH Q4H PRN for SHORTNESS OF BREATH, #1 INHALER 0 Refills 108 mcg/actuation Prednisone (Prednisone) 10 Mg Tab 10 MG PO DAILY, TAB 0 Refills Umeclidinium-Vilanterol Inh (Anoro Ellipta Inh) 62.5-25 Mcg/Act Aero 1 PUFF INH DAILY for COPD, #1 INHALER 0 Refills Javier Batista MD Mar 02, 2017 15:43
[2017-03-02 16:17] VITALS: O2SAT 97
== END 2017-03-02 17:19 | disposition home or self-care (01) | DRG 181 ==
LOC: NEPE 14:41 → NEDA 17:59 → N07B 18:54
PROVIDERS: ADMIT Family Medicine; ATTEND Family Medicine
PROC: 0W9930Z Drainage of Right Pleural Cavity with Drainage Device, Percutaneous Approach (ICD-10-PCS; principal; 2017-02-26)
DX: C34.90 Malignant neoplasm of unspecified part of unspecified bronchus or lung (principal); J95.811 Postprocedural pneumothorax; I87.1 Compression of vein; J98.11 Atelectasis; I10 Essential (primary) hypertension; J44.9 Chronic obstructive pulmonary disease, unspecified; F17.210 Nicotine dependence, cigarettes, uncomplicated; Z79.51 Long term (current) use of inhaled steroids
CPT/HCPCS: 32551; 71010; 71020; 80053; 81001; 82550; 83735; 83880; 84484; 85025; 85610; 85730; 93005; 94150; 94640; 94664; 96374; 96375; J1170; J2250; J2270; J7512

== ENCOUNTER → 2017-03-28 | Day surgery (SDC) | payer OTHER ==
[~2017-03-28] MED LIST changes: +BUPIVACAINE/EPINEPHRINE 0.5% PF 10 ML VIAL ONE; -COUG100S PO; +HYDR-3516 PO; +LACTATED RINGER'S 1000 ML INJ 1,000 ML ONE; -MEDR4PAK PO; +MIDAZOLAM HCL 2 MG/2 ML VIAL ONE; +PRED10 PO; +PROPOFOL 500 MG/50 ML BTL IV ONE; +SODIUM CHLOR 0.9% 250 ML INJ 250 ML IV ONE; +SODIUM CHLORIDE 0.9% INJ 10 ML ONE; +UMEC1AER INH; +VANCOMYCIN HCL 1000 MG VIAL ONE
--- NOTE | 2017-03-28 09:54 | TN ---
cc: CARLA STORY M.D. DATE OF SURGERY: 03/28/2017 PREOPERATIVE DIAGNOSIS Lung cancer with need for IV chemotherapy. POSTOPERATIVE DIAGNOSIS Lung cancer with need for IV chemotherapy. PROCEDURE PERFORMED Left subclavian [id number] with intraoperative fluoroscopy. SURGEON Carla Story. ANESTHESIA TIVA with local. COMPLICATIONS None. INDICATION FOR PROCEDURE Mr. Lorenzo is a pleasant 51-year-old gentleman who unfortunately has metastatic lung cancer. He requires IV chemotherapy. He was seen and evaluated in the office and offered [id number]. The risks and benefits of [id number] placement was discussed with him and he was agreeable. DETAILS OF PROCEDURE The patient was identified, brought to the operating room and placed supine on the operating table. After adequate IV sedation was achieved, the anterior chest and neck was prepped and draped in a standard surgical fashion. 0.25% Marcaine was injected in the skin and subcutaneous tissue around the left clavicle. The left subclavian vein was accessed without difficulty using an 18-gauge needle. A guidewire was advanced and followed to the level of the superior vena cava. Next, a subcutaneous pocket was fashioned in the left anterior chest. The dilator was then placed over the guidewire and followed to the level of the superior vena cava. The guidewire was then removed and the catheter was inserted. The catheter was advanced about 20 cm which put it in the superior vena cava adjacent to the right atrium. The introducer was then removed. The catheter was then attached to the port with a locking device. The port was then placed into the subcutaneous pocket and secured with a 2-0 Prolene suture. The pocket was injected with additional local anesthetic. The port was tested and found to have easy ability to flush and good blood return. The pocket was then closed in two layers using a 4-0 Vicryl. Sterile dressings were applied and the patient was awakened and brought to Recovery in stable condition. A chest x-ray will be obtained in the recovery room. MD SILVIA Taylor/NATALYA /9:41 AM /9:45 AM
== END | disposition home or self-care (01) ==
LOC: ESDC 07:38
PROVIDERS: ATTEND Surgery Trauma Surgery
DX: Z45.2 Encounter for adjustment and management of vascular access device (principal); C34.31 Malignant neoplasm of lower lobe, right bronchus or lung
CPT/HCPCS: 00532; 36561; 77001; C1788; J1642; J2250; J3010; J3370; J7050; J7120

== ENCOUNTER 2017-05-11 08:06 | Day surgery (SDC) | payer OTHER ==
[~2017-05-11] VITALS: Ht 180.3 cm; Wt 93.6 kg
[~2017-05-11 08:06] MED LIST changes: -BUPIVACAINE/EPINEPHRINE 0.5% PF 10 ML VIAL ONE; -LACTATED RINGER'S 1000 ML INJ 1,000 ML ONE; -MIDAZOLAM HCL 2 MG/2 ML VIAL ONE; -PROPOFOL 500 MG/50 ML BTL IV ONE; -SODIUM CHLOR 0.9% 250 ML INJ 250 ML IV ONE; -SODIUM CHLORIDE 0.9% INJ 10 ML ONE; -VANCOMYCIN HCL 1000 MG VIAL ONE
[2017-05-11] MEDS ORDERED: BUPIVACAINE HCL PF 0.75% 30 ML VIAL ONE ×2 (08:07→11:27)
[2017-05-11 08:18] VITALS: BP 164/96; PULSE 97; RESP 20; TEMP 97.8; O2SAT 97
[2017-05-11] MEDS ORDERED: FOLI800T PO (08:23)
[2017-05-11] MEDS ORDERED: ONDA8TAB7 PO (08:23)
[2017-05-11] MEDS ORDERED: FOLI400T PO (08:23)
[2017-05-11] MEDS ORDERED: PROC10TA PO (08:23)
[2017-05-11] MEDS ORDERED: LACTATED RINGER'S 1000 ML IV PRN (08:45)
[2017-05-11] MEDS ORDERED: ceFAZolin 2 GM PREMIX 50 ML IV SCH (08:45)
[2017-05-11] MEDS ORDERED: CHLORHEXIDINE GLUCONATE 2 % 1 PACK (2 CLOTHS) TOPICAL PRN (08:45)
[2017-05-11] MEDS ORDERED: SODIUM CHLORID 0.9% 500 ML IV PRN (08:45)
[2017-05-11] MEDS ORDERED: POVIDONE IODINE 5% (ANTISEPSIS KIT) 4 APPLICATIONS EACH NARE PRN (08:45)
[2017-05-11] MEDS ORDERED: METOPROLOL TARTRATE 25 MG TAB PO PRN (08:45)
[2017-05-11] MEDS ORDERED: SODIUM CHLOR 0.9% 1000 ML INJ 1,000 ML IV SCH (08:45)
[2017-05-11 09:20] LABS: APTT (PATIENT) 22.3 SEC (24.3-30.1); INTERNATIONAL NORMALIZED RATIO 1.1 RATIO; PROTHROMBIN TIME - PATIENT 10.9 SEC (9.8-11.6)
[2017-05-11] MEDS ORDERED: LEVOFLOXACIN 500 MG PREMIX INJ 100 ML IV ONE (10:13)
[2017-05-11] MEDS ORDERED: PROPOFOL 500 MG/50 ML INJ 100 ML ONE (10:35)
[2017-05-11] MEDS ORDERED: SODIUM CHLORIDE 0.9% FLUSH 10 ML FLUSH IV FLUSH PRN (11:15)
[2017-05-11 13:05] VITALS: BP 151/92; PULSE 85; RESP 16; TEMP 97.5; O2SAT 97
[2017-05-11 13:20] VITALS: BP 155/96; PULSE 80; RESP 18; O2SAT 98
[2017-05-11] MEDS ORDERED: MEPERIDINE HCL 50 MG/ML VIAL ONE (13:28)
--- NOTE | 2017-05-11 13:30 | PD.RAD ---
Post Procedure Progress Note Pre Procedure Diagnosis: (1) Adenocarcinoma, lung Post Procedure Diagnosis: (1) Adenocarcinoma, lung Procedure Date: May 11, 2017 Supervising Radiologist: Nikolai Mckeon Proceduralist/Assist: Valeria Weiss, RT(R)(CV), Geno Michelle RT(R) Anesthesia: General Plan of Activity Patient to Unit: ROPU Patient Condition: Good See PACS Report for procedural detail/treatment Nikolai Mckeon MD May 11, 2017 13:30
[2017-05-11 13:50] VITALS: BP 156/90; PULSE 76; RESP 16; O2SAT 98
[2017-05-11 14:20] VITALS: BP 157/97; PULSE 80; RESP 18; O2SAT 96
[2017-05-11] MEDS ORDERED: MORPHINE SULFATE 4 MG/ML INJ ONE (14:26)
[2017-05-11 15:20] VITALS: BP 152/96; PULSE 82; RESP 18; O2SAT 96
[2017-05-11] MEDS ORDERED: ACETAMINOPHEN/HYDROcodone 325 MG/5 MG TAB PO ONE (15:30)
== END 2017-05-11 16:00 | disposition home or self-care (01) ==
LOC: HROP 08:06 → HRIP 08:07 → HROP 16:00
PROVIDERS: ATTEND Internal Medicine Hematology & Oncology
DX: C79.51 Secondary malignant neoplasm of bone (principal); C34.90 Malignant neoplasm of unspecified part of unspecified bronchus or lung; M84.58XA Pathological fracture in neoplastic disease, other specified site, initial encounter for fracture; I10 Essential (primary) hypertension
CPT/HCPCS: 01936; 20982; 22514; 85610; 85730; C1886; J1956; J2175; J2270

== ENCOUNTER 2017-05-18 13:36 | Day surgery (SDC) | payer OTHER ==
[~2017-05-18 13:36] MED LIST changes: -ALBUAER3 INH; +FOLI400T PO; +FOLI800T PO; -HYDR-3516 PO; +ONDA8TAB7 PO; -PRED10 PO; +PROC10TA PO; -UMEC1AER INH
== END 2017-05-18 13:40 | disposition home or self-care (01) ==
LOC: HROP 13:36 → HRIP 13:37 → HROP 13:40
PROVIDERS: ATTEND Radiology Body Imaging
DX: C79.51 Secondary malignant neoplasm of bone (principal); C34.90 Malignant neoplasm of unspecified part of unspecified bronchus or lung; M84.58XA Pathological fracture in neoplastic disease, other specified site, initial encounter for fracture